=== PATIENT | male | born 1970 | race Caucasian/White ===

== ENCOUNTER 2020-12-01 10:28 | Outpatient (REF) | payer OTHER, SELFPAY ==
[2020-12-01 12:38] LABS: MANUAL DIFF FLAG NO
[2020-12-01 12:42] LABS: Basophils Percent Auto 0.4 % (0-2); Eosinophils Absolute Auto 0.1 X10*3/uL (0.0-0.4); Eosinophils Percent Auto 1.1 % (0-4); Hematocrit 46.3 % (42-52); Hemoglobin 15.4 g/dl (14.0-18.0); Imm Gran Abs Auto 0.01 X10*3/uL (0.00-0.03); Imm Gran Pct Auto 0.2 % (0.0-0.4); Lymphocytes Absolute Auto 1.2 X10*3/uL (1.2-4.9); Lymphocytes Percent Auto 21.9 % (20-40); Mean Corpuscular HGB Conc 33.3 g/dl (31.0-36.0); Mean Corpuscular Hemoglobin 29.3 pg (27.0-33.0); Mean Corpuscular Volume 88.2 fL (80-98); Mean Platelet Volume 10.1 fL (9.4-12.4); Monocytes Absolute Auto 0.3 X10*3/uL (0.1-1.2); Monocytes Percent Auto 6.1 % (2-11); Neutrophils Absolute Auto 3.7 X10*3/uL (2.0-8.3); Neutrophils Percent Auto 70.3 % (45-73); Platelet Count 227 X10*3/uL (160-400); Red Blood Count 5.25 X10*6/uL (4.60-5.80); Red Cell Distribution Width 12.1 % (11.0-16.0); White Blood Count 5.3 X10*3/uL (4.8-10.8)
[2020-12-01 13:05] LABS: Alanine Aminotransferase 27 U/L (0-40); Albumin Level 4.2 g/dL (3.5-5.0); Alkaline Phosphatase 53 U/L (39-117); Anion Gap 13 (12-20); Aspartate Amino Transferase 21 U/L (5-37); Bilirubin Total 0.9 mg/dL (0.0-1.0); Blood Urea Nitrogen 17 mg/dL (9-16); Calcium 9.1 mg/dL (8.4-10.2); Carbon Dioxide 27 mmol/L (22-29); Chloride 104 mmol/L (96-108); Cholesterol 226 mg/dL; Estimated Glomerular Filt Rate > 60; Glucose Fasting 98 mg/dL (60-99); HDL Cholesterol 50 mg/dL; LDL Cholesterol Calculated 149 mg/dl; Potassium 4.1 mmol/L (3.3-5.1); Sodium 140 mmol/L (135-145); Total Protein 7.1 g/dL (6.5-8.0); Triglycerides 139 mg/dL
[2020-12-01 13:25] LABS: Prostate Specific Antigen 0.39 ng/mL (<0.05-4.0)
== END 2020-12-01 10:29 | disposition home or self-care (01) ==
LOC: HO.MANLDS 10:28
PROVIDERS: PCP Internal Medicine; Visit Provider Internal Medicine
DX: Z00.00 Encounter for general adult medical examination without abnormal findings (principal); Z12.5 Encounter for screening for malignant neoplasm of prostate
CPT/HCPCS: 36415; 80053; 80061; 84153; 85025

== ENCOUNTER 2022-01-24 09:15 | Outpatient (REF) | payer OTHER, SELFPAY ==
[2022-01-24 11:35] LABS: Alanine Aminotransferase 20 U/L (0-40); Albumin Level 4.2 g/dL (3.5-5.0); Alkaline Phosphatase 48 U/L (39-117); Anion Gap 14 (12-20); Aspartate Amino Transferase 19 U/L (5-37); Bilirubin Total 0.7 mg/dL (0.0-1.0); Blood Urea Nitrogen 15 mg/dL (9-16); Calcium 9.3 mg/dL (8.4-10.2); Carbon Dioxide 27 mmol/L (22-29); Chloride 102 mmol/L (96-108); Cholesterol 213 mg/dL; Estimated Glomerular Filt Rate > 60; Glucose Random 113 mg/dL (60-115); HDL Cholesterol 59 mg/dL; LDL Cholesterol Calculated 123 mg/dl; Potassium 4.1 mmol/L (3.3-5.1); Sodium 139 mmol/L (135-145); Total Protein 7.1 g/dL (6.5-8.0); Triglycerides 158 mg/dL
[2022-01-24 11:38] LABS: Prostate Specific Antigen 0.29 ng/mL (<0.05-4.0)
== END 2022-01-24 09:16 | disposition home or self-care (01) ==
LOC: HO.MANLDS 09:15
PROVIDERS: Visit Provider Internal Medicine
DX: Z12.5 Encounter for screening for malignant neoplasm of prostate (principal); E78.5 Hyperlipidemia, unspecified
CPT/HCPCS: 36415; 80053; 80061; 84153

== ENCOUNTER 2023-04-04 08:53 | Outpatient (REF) | payer OTHER, SELFPAY ==
[2023-04-04 13:42] LABS: MANUAL DIFF FLAG NO
[2023-04-04 13:46] LABS: Basophils Percent Auto 0.9 % (0-2); Eosinophils Absolute Auto 0.1 X10*3/uL (0.0-0.4); Eosinophils Percent Auto 1.8 % (0-4); Hematocrit 48.4 % (42.0-52.0); Hemoglobin 15.9 g/dl (14.0-18.0); Imm Gran Abs Auto 0.01 X10*3/uL (0.00-0.03); Imm Gran Pct Auto 0.2 % (0.0-0.4); Lymphocytes Absolute Auto 1.3 X10*3/uL (1.2-4.9); Lymphocytes Percent Auto 29.1 % (20-40); Mean Corpuscular HGB Conc 32.9 g/dl (31.0-36.0); Mean Corpuscular Hemoglobin 29.4 pg (27.0-33.0); Mean Corpuscular Volume 89.5 fL (80.0-98.0); Mean Platelet Volume 9.9 fL (9.4-12.4); Monocytes Absolute Auto 0.4 X10*3/uL (0.1-1.2); Monocytes Percent Auto 7.8 % (2-11); Neutrophils Absolute Auto 2.7 x10*3/uL (2.0-8.3); Neutrophils Percent Auto 60.2 % (45-73); Platelet Count 252 X10*3/uL (160-400); Red Blood Count 5.41 X10*6/uL (4.60-5.80); Red Cell Distribution Width 12.3 % (11.0-16.0); White Blood Count 4.5 X10*3/uL (4.8-10.8)
[2023-04-04 14:25] LABS: Alanine Aminotransferase 23 U/L (0-40); Albumin Level 4.4 g/dL (3.5-5.0); Alkaline Phosphatase 47 U/L (39-117); Anion Gap 13 (12-20); Aspartate Amino Transferase 23 U/L (5-37); Bilirubin Total 0.9 mg/dL (0.0-1.0); Blood Urea Nitrogen 10 mg/dL (9-16); Carbon Dioxide 27 mmol/L (22-29); Chloride 106 mmol/L (96-108); Cholesterol 207 mg/dL (<200); Estimated Glomerular Filt Rate > 60; Glucose Random 106 mg/dL (60-115); HDL Cholesterol 54 mg/dL (>40); LDL Cholesterol Calculated 127 mg/dL (<100); Potassium 4.5 mmol/L (3.3-5.1); Sodium 141 mmol/L (135-145); Total Protein 7.7 g/dL (6.5-8.0); Triglycerides 133 mg/dL (<150)
[2023-04-04 14:28] LABS: Thyroid Stimulating Hormone 1.32 uIU/mL (0.32-4.0)
[2023-04-04 14:37] LABS: Vitamin B12 654 pg/mL (200-900)
== END 2023-04-04 08:54 | disposition home or self-care (01) ==
LOC: HO.MANLDS 08:53
PROVIDERS: Visit Provider Internal Medicine
DX: E78.5 Hyperlipidemia, unspecified (principal); F41.9 Anxiety disorder, unspecified
CPT/HCPCS: 36415; 80053; 80061; 82607; 82746; 84443; 85025

== ENCOUNTER 2024-01-16 09:31 | Outpatient (REF) | payer OTHER, SELFPAY ==
[2024-01-16 13:31] LABS: MANUAL DIFF FLAG NO
[2024-01-16 13:43] LABS: Basophils Percent Auto 0.5 % (0-2); Eosinophils Absolute Auto 0.1 X10*3/uL (0.0-0.4); Eosinophils Percent Auto 1.9 % (0-4); Hematocrit 47.8 % (42.0-52.0); Hemoglobin 15.8 g/dl (14.0-18.0); Imm Gran Abs Auto 0.01 X10*3/uL (0.00-0.03); Imm Gran Pct Auto 0.2 % (0.0-0.4); Lymphocytes Absolute Auto 1.5 X10*3/uL (1.2-4.9); Lymphocytes Percent Auto 24.7 % (20-40); Mean Corpuscular HGB Conc 33.1 g/dl (31.0-36.0); Mean Corpuscular Hemoglobin 29.2 pg (27.0-33.0); Mean Corpuscular Volume 88.4 fL (80.0-98.0); Mean Platelet Volume 9.8 fL (9.4-12.4); Monocytes Absolute Auto 0.4 X10*3/uL (0.1-1.2); Monocytes Percent Auto 7.4 % (2-11); Neutrophils Absolute Auto 3.9 x10*3/uL (2.0-8.3); Neutrophils Percent Auto 65.3 % (45-73); Platelet Count 239 X10*3/uL (160-400); Red Blood Count 5.41 X10*6/uL (4.60-5.80); Red Cell Distribution Width 12.7 % (11.0-16.0); White Blood Count 5.9 X10*3/uL (4.8-10.8)
[2024-01-16 14:07] LABS: Alanine Aminotransferase 32 U/L (0-40); Albumin Level 4.5 g/dL (3.5-5.0); Alkaline Phosphatase 50 U/L (39-117); Anion Gap 13 (12-20); Aspartate Amino Transferase 26 U/L (5-37); Bilirubin Total 0.7 mg/dL (0.0-1.0); Blood Urea Nitrogen 13 mg/dL (9-16); Calcium 9.8 mg/dL (8.4-10.2); Carbon Dioxide 27 mmol/L (22-29); Chloride 104 mmol/L (96-108); Cholesterol 217 mg/dL (<200); Estimated Glomerular Filt Rate > 60; Glucose Random 96 mg/dL (60-115); HDL Cholesterol 57 mg/dL (>40); LDL Cholesterol Calculated 134 mg/dL (<100); Potassium 4.4 mmol/L (3.3-5.1); Sodium 140 mmol/L (135-145); Total Protein 7.8 g/dL (6.5-8.0); Triglycerides 132 mg/dL (<150)
[2024-01-16 14:13] LABS: Prostate Specific Antigen 0.46 ng/mL (<0.05-4.0)
[2024-01-16 14:23] LABS: Vitamin D 25-OH Total 80.6 ng/mL (>30)
== END 2024-01-16 09:32 | disposition home or self-care (01) ==
LOC: HO.MANLDS 09:31
PROVIDERS: Visit Provider Internal Medicine
DX: Z00.00 Encounter for general adult medical examination without abnormal findings (principal); Z12.5 Encounter for screening for malignant neoplasm of prostate
CPT/HCPCS: 36415; 80053; 80061; 82306; 84153; 85025

== ENCOUNTER 2024-09-17 10:27 | Outpatient (REF) | payer OTHER, SELFPAY ==
--- OUTSIDE RECORDS SUMMARY | 2024-09-17 11:40 | XMS_ITS | Data Portability ---
Author Organization [facility] Address [address] [place] [address] Assessment Encounter Date Assessment Date Assessment LastModified by Organization Details LastModified Time 12/06/2021 12/06/2021 [id number] [place] [id number] ([employer]) MDM MODERATE MUST MEET 2 OUT OF 3 ELEMENTS: PROBLEMS, DATA OR RISK ELEMENT 1: PROBLEMS ADDRESSED 1 OR MORE CHRONIC ILLNESS WITH EXACERBATION OR 2 OR MORE STABLE CHRONIC ILLNESSES OR 1 UNDIAGNOSED NEW PROBLEM OR 1 ACUTE ILLNESS W/SYMPTOMS OR 1 ACUTE COMPLICATED INJURY ELEMENT 2: DATA MUST MEET 1 OF 3 CATEGORIES CATEGORY 1: REVIEW OF PRIOR EXTERNAL NOTES, REVIEW OF RESULTS, ORDERING OF EACH TEST, ASSESSMENT REQUIRING INDEPENDENT HISTORIAN OR CATEGORY 2: INDEPENDENT INTERPRETATION OF TESTS BY ANOTHER PHYSICIAN OR SPECIALIST OR CATEGORY 3: DISCUSSION OF MGT OR TEST INTERPRETATION W/EXTERNAL PHYSICIAN OR SPECIALIST ELEMENT 3: RISK RISK OF COMPLICATIONS AND/OR MORBIDITY OR MORTALITY OF PATIENT MANAGEMENT PROVIDER MUST THOROUGHLY DOCUMENT EACH ELEMENT THAT IS COVERED Not available 12/06/2021 16:41:00 03/29/2023 03/29/2023 [id number] [place] [id number] ([employer]) : MDM LOW MUST MEET 2 OF 3 ELEMENTS: PROBLEMS, DATA OR RISK ELEMENT 1: PROBLEMS ADDRESSED (LOW): 2 OR MORE SELF-LIMITED OR MINOR PROBLEMS OR 1 STABLE CHRONIC ILLNESS OR 1 ACUTE UNCOMPLICATED ILLNESS OR INJURY ELEMENT 2: DATA TO BE REVISED AND ANALYZED (LOW) MUST MEET 1 OF 2 CATEGORIES: CATEGORY 1. REVIEW OF PRIOR EXTERNAL NOTES/RESULTS, ORDERING OF TEST(S) CATEGORY 2. ASSESSMENT REQUIRING INDEPENDENT HISTORIAN(S) INCLUDE WHO THE HISTORIAN IS AND RELATION TO PT AND WHY PT IS UNABLE TO GIVE COMPLETE HISTORY ELEMENT 3: RISK (LOW) RISK OF COMPLICATIONS AND/OR MORBIDITY OR MORTALITY OF PATIENT MANAGEMENT PROVIDER MUST THOROUGHLY DOCUMENT ALL OF THE ELEMENTS COVERED Not available 03/29/2023 16:05:24 05/03/2023 05/03/2023 [id number] [place] [id number] ([employer]) : MDM LOW MUST MEET 2 OF 3 ELEMENTS: PROBLEMS, DATA OR RISK ELEMENT 1: PROBLEMS ADDRESSED (LOW): 2 OR MORE SELF-LIMITED OR MINOR PROBLEMS OR 1 STABLE CHRONIC ILLNESS OR 1 ACUTE UNCOMPLICATED ILLNESS OR INJURY ELEMENT 2: DATA TO BE REVISED AND ANALYZED (LOW) MUST MEET 1 OF 2 CATEGORIES: CATEGORY 1. REVIEW OF PRIOR EXTERNAL NOTES/RESULTS, ORDERING OF TEST(S) CATEGORY 2. ASSESSMENT REQUIRING INDEPENDENT HISTORIAN(S) INCLUDE WHO THE HISTORIAN IS AND RELATION TO PT AND WHY PT IS UNABLE TO GIVE COMPLETE HISTORY ELEMENT 3: RISK (LOW) RISK OF COMPLICATIONS AND/OR MORBIDITY OR MORTALITY OF PATIENT MANAGEMENT PROVIDER MUST THOROUGHLY DOCUMENT ALL OF THE ELEMENTS COVERED Not available 05/03/2023 17:02:25 Plan of Treatment Reminders Order Date Submit Date Provider Last Modified By Organization Details Last Modified Time Details Appointments ANNUAL EXAM 2024 12:00P M DR ARRINGTON Not available Not available Not available Lab lipid panel, blood 2021 022 [facility], [address] [place] [address], [id number], 12/06/2021 16:50:26 CMP, serum or plasma 2021 022 [facility], [address] [place] [address], [id number], 12/13/2021 12:12:48 PSA, serum or plasma 2021 022 [facility], [address] [place] [address], [id number], 12/06/2021 16:50:26 vitamin B12 + folate, serum or blood 2022 023 [facility], [address] [place] [address], [id number], 03/29/2023 16:15:32 TSH, serum or plasma 2022 023 [facility], [address] [place] [address], [id number], 03/29/2023 16:15:32 lipid panel, blood 2022 023 [facility], [address] [place] [address], [id number], 03/29/2023 16:15:32 CMP, serum or plasma 2022 023 [facility], [address] [place] [address], [id number], 03/29/2023 16:15:32 CBC w/ auto diff 2022 023 [facility], [address] [place] [address], [id number], 03/29/2023 16:15:32 CMP, serum or plasma 2023 024 [facility], [address] [place] [address], [id number], 01/17/2024 11:19:12 PSA, serum or plasma 2023 024 [facility], [address] [place] [address], [id number], 01/17/2024 11:19:13 CBC w/ auto diff 2023 024 [facility], [address] [place] [address], [address], 01/17/2024 11:19:12 lipid panel, blood 2023 024 [facility], [address] [place] [address], [address], 01/17/2024 11:19:12 vitamin D, 25-hydrox y, total, serum [address] [facility], [address] [place] [address], [place], [address], 01/16/2024 13:32:58 Referral None recorded. Procedures None recorded. Surgeries None recorded. Imaging XR, knee, 3 view 2023 [facility], [address] [facility], [place], [address], 01/30/2024 08:06:26 Medication Orders trazodone 50 mg tablet 2021 022 [id number], [address], [place], [id number], 08/19/2024 16:07:11 clonazepa m 0.5 mg tablet [address] [facility][id number], [address], [place], [id number], 03/29/2023 16:08:11 duloxetin e 30 mg capsule,d elayed release [address] [facility] #[id number], [address], [place], [id number], 01/16/2024 09:09:14 buspirone 10 mg tablet [address] [facility] #[id number], [address], [place], [id number], 01/16/2024 09:08:51 trazodone 100 mg tablet [address] [id number], [address], [place], [id number], 01/16/2024 13:32:58 Patient TargetsNo targets recorded. Patient Instructions Encounter Date Encounter Id Patient Instructions Last Modified By Organization Details Last Modified Time 12/06/2021 [id number] insomnia: care instructions Not available 12/06/2021 16:39:50 high cholesterol : care instructions Not available 12/06/2021 16:39:50 03/29/2023 [id number] high cholesterol : care instructions Not available 03/29/2023 16:08:03 Reason for Referral None Reported. Results Created Date Observation Date Name Description Value Unit Range Abnormal Flag Note LastModifiedBy Organization Detail LastModifiedTime Result Notes None recorded. Problems Name Problem SNOMED Code Status Onset Date Resolution Date Notes Provider Name and Address Organization Details Recorded Time Hyperlip idemia 16039589 Active 2020 Fabrice Arrington DO [address] [place] [address], [address], [facility] 1 16:36:45 Insomnia 917790760 Active 2021 Fabrice Arrington DO [address] [place] [address], [address], [facility] 2 16:36:55 Anxiety 20131109 Active 2021 Fabrice Arrington DO [address] [place] [address], [address], [facility] 2 16:42:45 Neuralgi a 64258326 Active 2017 [facility] [place] [facility] 8 10:26:40 Pain of left knee joint 43483784468 4107 Active 2023 Fabrice Arrington DO [address] [place] [address], [address], [facility] 4 09:17:52 Stress and adjustme nt reaction 707094334 Active 2023 Fabrice Arrington DO [address] [place] [address], [address], [facility] 4 09:20:51 Dysuria- frequenc y syndrome 7817785 Active 2024 Fabrice Arrington DO [address] [place] [address], [address], [facility] 5 09:59:48 Dysuria 57960165 Active 2024 Fabrice Arrington, DO [address] [facility], [place], [address], [facility] 5 10:25:02 Problem Notes None recorded. Medical Equipment None Reported. Allergies No known drug allergies Medications Name Sig Start Date Stop Date Status Note LastModified by Organization Details LastModified Time citalopram 40 mg tablet Take 1 tablet every day by oral route for 30 days. 01/09 completed Not Available Not Available Not Available trazodone 50 mg tablet TAKE 1 TABLET BY MOUTH EVERY DAY AT BEDTIME 08/19 completed Not Available Not Available Not Available ibuprofen 800 mg tablet TAKE 1 TABLET BY MOUTH EVERY 8 HOURS FOR 5 DAYS 12/06 completed Not Available Not Available Not Available clonazepam 0.5 mg tablet TAKE 1 TABLET BY MOUTH THREE TIMES DAILY NEEDED 2023 active Not Available Not Available Not Avai lable sertraline 100 mg tablet take 1 tablet by mouth once daily 12/01 completed Not Available Not Available Not Available ciprofloxac in 500 mg tablet Take 1 tablet every 12 hours by oral route for 10 days. 2024 active Not Available Not Available Not Avai lable lorazepam 0.5 mg tablet TAKE 1 TABLET BY MOUTH THREE TIMES DAILY FOR 7 DAYS NEEDED active Not Available Not Available No t Available trazodone 100 mg tablet TAKE 1 TABLET BY MOUTH EVERY DAY AT BEDTIME 2024 active Not Available Not Available Not Avai lable buspirone 10 mg tablet TAKE 1 TABLET BY MOUTH TWICE DAILY 01/15 completed Not Available Not Available Not Available polymyxin B sulfate 10,000 unit-trimet hoprim 1 mg/mL eye drops INSTILL 1 DROP INTO RIGHT EYE FOUR TIMES A DAY FOR 5 DAYS 12/06 completed Not Available Not Available Not Available omeprazole 20 mg capsule,del ayed release TAKE 1 CAPSULE BY MOUTH EVERY DAY 2023 active Not Available Not Available Not Avai lable amoxicillin 250 mg capsule TAKE 1 CAPSULE BY MOUTH EVERY 8 HOURS FOR 7 DAYS 12/06 completed Not Available Not Available Not Available lorazepam 1 mg tablet TAKE 1/2 TABLET BY MOUTH THREE TIMES DAILY NEEDED 05/03 completed Not Available Not Available Not Available ketoconazol e 2 % topical cream APPLY TOPICALLY TO THE AFFECTED AREA TWICE DAILY FOR 14 DAYS DIRECTED 12/06 completed Not Available Not Available Not Available duloxetine 30 mg capsule,del ayed release TAKE 1 CAPSULE BY MOUTH EVERY DAY 01/15 completed Not Available Not Available Not Available Boostrix Tdap 2.5 Lf unit-8 mcg-5 Lf/0.5 mL intramuscul ar syringe 12/01 completed Not Available Not Available Not Available Vitals Date Recorded Body weight Body mass index (BMI) Body height Heart rate Oxygen saturation Oxygen saturation in Arterial blood by Pulse oximetry Systolic blood pressure Diastolic blood pressure Provider Name and Address Organization Details Last Updated DateTime 2 37070.1 4 g 26.3 kg/m2 181.61 cm 83 /min 98 % 98 % 136 mm[Hg] 80 mm[Hg] Fabrice Arrington, DO [address] [place], [address] [place] [address] [facility] 2 16:13:57 Date Recorded Body height Body mass index (BMI) Body weight Heart rate Oxygen saturation Oxygen saturation in Arterial blood by Pulse oximetry Systolic blood pressure Diastolic blood pressure Provider Name and Address Organization Details Last Updated DateTime 2 181.61 cm 24.7 kg/m2 33250.2 7 g 90 /min 96 % 96 % 130 mm[Hg] 70 mm[Hg] Fabrice Arrington, DO [address] [place], [address] [place] [address] [facility] 2 09:06:01 Date Recorded Body height Body mass index (BMI) Body weight Heart rate Oxygen saturation Oxygen saturation in Arterial blood by Pulse oximetry Systolic blood pressure Diastolic blood pressure Provider Name and Address Organization Details Last Updated DateTime 3 180.34 cm 25.9 kg/m2 20878.1 8 g 81 /min 98 % 98 % 155 mm[Hg] 88 mm[Hg] Allie Otero [facility] 3 15:27:00 Date Recorded Body height Body mass index (BMI) Body weight Heart rate Oxygen saturation Oxygen saturation in Arterial blood by Pulse oximetry Systolic blood pressure Diastolic blood pressure Provider Name and Address Organization Details Last Updated DateTime 3 180.34 cm 25.4 kg/m2 96960.5 3 g 110 /min 99 % 99 % 126 mm[Hg] 72 mm[Hg] Fabrice Arrington DO [address] [place], [address], [facility] 3 16:37:17 Date Recorded Body height Body mass index (BMI) Body weight Heart rate Oxygen saturation Oxygen saturation in Arterial blood by Pulse oximetry Systolic blood pressure Diastolic blood pressure Provider Name and Address Organization Details Last Updated DateTime 4 180.34 cm 26.5 kg/m2 02396.9 1 g 90 /min 97 % 97 % 132 mm[Hg] 78 mm[Hg] Sheela James [facility] 4 08:59:00 Social History Question Answer Notes LastModified by Organizat ion Details LastModified Time Tobacco Smoking Status Current Every Day Smoker e-cigg Not Available [facility] 06/09/2020 03:36:24 What Was The Date Of Your Most Recent Tobacco Screening? 01/16/2024 [email or web address] Information not available 01/16/2024 Do You Or Have You Ever Used Any Other Forms Of Tobacco Or Nicotine? No [email or web address] Information not available 03/29/2023 Sex: Unknown Functional Status None recorded. Mental Status None recorded. Family History Nothing Reported. Medical History No medical history recorded. Immunizations Vaccine Type Date Status Note Provider Nam e and Address Organization Details Recorded Time Tdap 04/29/2019 completed Not Available [facility] 05/28/2021 15:39:46 Past Encounters Encounter ID Performer Location Encounter Start Date Encounter Closed Date Diagnosis/Indication Diagnosis SNOMED-CT Code Diagnosis ICD10 Code Diagnosis Note [id number] Fabrice Arrington DO [facility] [address] [facility] [address] 01/09/2018 11:43:45 01/09/2018 12:21:19 Adult health examination 832324072 Z00.00 will add sertraline again and go with a higher dose taken in the evening Active or passive immunization 552811728 Z23 [id number] Fabrice Arrington [facility] [address] [facility] [address] 02/21/2018 11:34:08 02/21/2018 13:49:55 Hyperglycemia 16245849 R73.9 will re chk lab in 6 weeks early chk A1c and glucose [id number] Fabrice Arrington [facility] [address] [facility] [address] 04/25/2018 13:34:01 04/25/2018 14:17:27 Hyperglycemia 09818330 R73.9 will re chk lab in 6 months early november chk A1c and glucose [id number] Fabrice Bordenmaritza [facility] [address] [facility] [address] 12/01/2020 09:44:23 12/01/2020 11:32:36 Active or passive immunization 293647268 Z23 will need shingles vacc in 10 yrs he will also need colonsocop y soon Adult heal th examination 036516805 Z00.00 doing well no major issues Screening for malignant neoplasm of colon 404181218 Z12.11 had one at 40 yrs age will order Anxiety 45114615 F41.9 Tinea cruris 574446052 B 35.6 [id number] Fabrice Arrington [facility] [address] [facility] [address] 12/06/2021 15:36:33 12/07/2021 08:11:41 Hyperlipidemia 24615103 E78.5 will need lab and have him get fbw Insomnia 356858825 G47.0 0 we will try the lower Anxiety 45980156 F41.9 was on citalopram now having similar sympt we will try the trazodone first and [place] [id number] Fabrice Bordenmaritza [facility] [address] [facility] [address] 03/04/2022 09:00:55 03/04/2022 10:15:47 Active or passive immunization 116678221 Z23 will need shingles vacc in 10 yrs he will also need colonsocop y soon Adult heal th examination 998103412 Z00.00 doing well no major issueslong discuss re lab etc we will have him cont to eat well stay active and rechk a cholestero l in 1 year after this we will then consider ordering a ct heart calcium score [id number] Fabrice Arrington, [facility] [address] [facility] [address] 03/29/2023 15:05:01 03/29/2023 16:19:13 Hyperlipidemia 46587605 E78.5 will need lab and have him get fbw Anxiety 24200786 F41.9 we will have him try duloxetine and willsee in 4 weeks also we will refill clonazepam instead of lorazepam [id number] Fabrice Arrington, [facility] [address] [facility] [address] 05/03/2023 16:01:50 05/05/2023 08:07:02 Anxiety 46188709 F41.9 did not tolerate the duloxetine has had some diarrhea and on edge but other days was betterwill try buspirone Hyperlipidemia 20104368 E78.5 will need lab and have him get fbw [id number] Fabrice Arrington, [facility] [address] [facility] [address] 01/16/2024 08:51:16 01/16/2024 11:16:39 Active or passive immunization 915944583 Z23 will need shingles vacc in 10 yrs he will also need colonsocop y soon Adult heal th examination 214119734 Z00.00 doing well no major issueslong discuss re lab etc we will have him cont to eat well stay active and rechk a cholestero l in 1 year after this we will then consider ordering a ct heart calcium score Depression screening 171 806804 Z13.31 SCREENING NEGATIVE Stress and adjustment reaction 629885051 F43.9 stop buspar Insomnia 687774470 G47.0 0 we will try increasing the traz to help with the stresshe will stop the buspar Pain of le ft knee joint 4727600123 25540 M25.562 obvious damage to palpation and pt relates pain will start with xray Health Concerns Section Related Observation LastModified by Organization Detai ls LastModified Time None Recorded Concern Status LastModified by Organization Details LastModified Time None Recorded Advance Directives Directive None Recorded Payers Encounter Date Sequence Insurance Name Policy Number Policy Epperson Covered Member ID Epperson Member ID Guarantor Name 12/06/2021 1 [facility] [id number] Sedrick Devon [id number] Sedrick Devon 03/04/2022 1 [facility] [id number] Sedrick Devon [id number] Sedrick Devon 03/29/2023 1 [facility] [id number] Sedrick Devon [id number] Sedrick Devon 05/03/2023 1 [facility] [id number] Sedrick Devon [id number] Sedrick Devon 01/16/2024 1 [facility] [id number] Sedrick Devon [id number] Sedrick Devon Notes Date Note Type Note Provider Name and Address Organization Details Recorded Time 12/07/19 22 text/htm l Care Management - HyperlipidemiaReported bypatient.Control:usually well controlled; improving; at goal Complications:no coronary artery disease; no heart attack; no cardiovascular disease; no pancreatitis; no stroke here for rechk and is doing ok overallno cp no sobdenies any prob bowels and bladderstates not sleeping well we angy be getting some lab Fabrice Arrington, DO [address] [place], [address], [facility] 12/06/2021 16:45:01 03/04/20 22 text/htm l Annual WellnessReported bypatient.Diet and Nutrition:healthy diet Fracture Risk:no history of fractures; no recent explained fracture; no sudden unexplained fractures; no previous musculoskeletal injuries Physical Activity:exercises on a regular basis; recent increase in physical activity; good physical condition Additional Lifestyle Factors:no tobacco use; no alcohol intake; stopped drinking alcohol Depression Risk:never feels sad, empty, or tearful; no loss of interest in activities; no significant changes in weight; no sleep disturbances or insomnia; no agitation; no loss of energy; no feelings of worthlessness or guilt; no thoughts of suicide; no history of depression; no history of mood disorders Hearing:no loss of hearing Vision:no vision problems Fabrice Arrington DO [address] [place], [address], [facility] 03/04/2022 09:50:53 03/29/20 23 text/htm l here for rechk and relates that he has been still anxiouslong detailed discussion re anxiety and stress and feeling down and treatment opitons Fabrice Arrington DO [address] [place], [address], [facility] 03/29/2023 16:12:39 05/03/20 text/htm l here for rechk a nd states tried to take the diloxetine and states that first week was not too good and had some diarrheastates has had couple days not feeling well and stayed in bedthis week had a panic attack Fabrice Arrington DO [address] [place], [address], [facility] 05/03/2023 17:12:22 01/16/20 24 text/htm l Annual WellnessReported bypatient.Diet and Nutrition:healthy diet Fracture Risk:no history of fractures; no recent explained fracture; no sudden unexplained fractures; no previous musculoskeletal injuries Physical Activity:exercises on a regular basis; recent increase in physical activity; good physical condition Additional Lifestyle Factors:no tobacco use; no alcohol intake; stopped drinking alcohol Depression Risk:never feels sad, empty, or tearful; no loss of interest in activities; no significant changes in weight; no sleep disturbances or insomnia; no agitation; no loss of energy; no feelings of worthlessness or guilt; no thoughts of suicide; no history of depression; no history of mood disorders Hearing:no loss of hearing Vision:no vision problems Fabrice Arrington DO [address] [place], [address], [facility] 01/16/2024 09:21:21
[2024-09-17 13:36] LABS: Appearance Urine Clear; Color Urine Yellow; Glucose Urine UA Negative (Negative); Leukocyte Esterase Urine Negative (Negative); Nitrite Urine Negative (Negative); Specific Gravity - Urine <= 1.005 (1.005-1.025); Urine Blood Negative (Negative); Urine Ketones Negative (Negative); Urine Protein Negative (Neg-Trace)
[2024-09-17 13:46] LABS: Bacteria Urine None Seen (None Seen); Hyaline Casts Urine 0-2 /LPF (0-2); RBC Urine 0-2 /HPF (0-2); Squamous Epithelial Cell Urine 0-2 /HPF (0-2); WBC Urine 0-5 /HPF (0-5)
== END 2024-09-17 10:28 | disposition home or self-care (01) ==
LOC: HO.MANLDS 10:27
PROVIDERS: Visit Provider Internal Medicine
DX: R30.0 Dysuria (principal)
CPT/HCPCS: 81001

== ENCOUNTER 2024-10-02 15:28 | Outpatient (REF) | payer OTHER, SELFPAY ==
[2024-10-02 18:52] LABS: Appearance Urine Clear; Color Urine Dark Yellow; Glucose Urine UA Negative (Negative); Leukocyte Esterase Urine Negative (Negative); Nitrite Urine Negative (Negative); PH 6.5 (5.0-9.0); Specific Gravity - Urine 1.025 (1.005-1.025); Urine Blood Negative (Negative); Urine Ketones Trace mg/dL (Negative); Urine Protein Negative (Neg-Trace)
--- OUTSIDE RECORDS SUMMARY | 2024-10-02 19:26 | XMS_ITS | Continuity of Care Document ---
Author Organization [facility], [facility] Address [address] [place] [address] [place] [address] Assessment Encounter Date Assessment Date Assessment LastModified by Organization Details LastModified Time 10/02/2024 10/02/2024 [id number] [place] [id number] (MERCHANDISE EXECUTIVE) MDM MODERATE MUST MEET 2 OUT OF [...] EACH ELEMENT THAT IS COVERED Not available 10/02/2024 15:34:54 Plan of Treatment Reminders Order Date Submit Date Provider Last Modified By Organization Details Last Modified Time Details Appointments NEW PROBLEM 15 2024 03:15P M DR ARRINGTON Not available Not available Not available ANNUAL EXAM 2024 12:00P M DR ARRINGTON Not available Not available Not available Lab urinalysi s complete, reflex culture 2024 025 [facility], [address] [place] [address], [place], [address], 10/02/2024 15:36:46 urinalysi s, dipstick 2024 025 [facility], [address], [address], [place], [address], 10/02/2024 16:08:15 Referral None recorded. Procedures None recorded. Surgeries None recorded. Imaging None recorded. Medication Orders sulfameth oxazole 800 mg-trimet hoprim 160 mg tablet 2024 [place] [id number], [address] [place], [place], [phone], 10/02/2024 15:35:50 Patient TargetsNo targets recorded. Patient Instructions Encounter Date Encounter Id Patient Instructions Last Modified By Organization Details Last Modified Time 10/02/2024 [id number] painful urinatio n (dysuria): care instructions Not available 10/02/2024 15:35:39 epididymitis and orchitis: care instructions Not available 10/02/2024 15:35:38 Reason for Referral None Reported. Results Created Date Observation Date Name Description Value Unit Range Abnormal Flag Note LastModifiedBy Organization Detail LastModifiedTime 10/02/1910/02/2024 urina lysis , dipst ick Leukocytes Negati ve Not Available [address], [place], [address], 10/02/2024 15:14:27 10/02/19 25 10/02/2024 urina lysis , dipst ick Nitrite negati ve Not Available [address], [place], [address], 10/02/2024 15:14:27 10/02/19 25 10/02/2024 urina lysis , dipst ick Urobilinogen .2 Not Available [facility] [address], [place], [address], 10/02/2024 15:14:27 10/02/19 25 10/02/2024 urina lysis , dipst ick Protein Trace Not Available [address], [place], [address], 10/02/2024 15:14:27 10/02/19 25 10/02/2024 urina lysis , dipst ick pH 6.0 Not Available [facility] [address], [place], [address], 10/02/2024 15:14:27 10/02/19 25 10/02/2024 urina lysis , dipst ick Blood Negati ve Not Available [facility] [address], [place], [address], 10/02/2024 15:14:27 10/02/19 25 10/02/2024 urina lysis , dipst ick Specific [place] 1.020 Not Available [facility] [address], [place], [address], 10/02/2024 15:14:27 10/02/19 25 10/02/2024 urina lysis , dipst ick Ketone Trace Not Available [facility] [address], [place], [address], 10/02/2024 15:14:27 10/02/19 25 10/02/2024 urina lysis , dipst ick Bilirubin Small Not Available [facility] [address], [place], [address], 10/02/2024 15:14:27 10/02/19 25 10/02/2024 urina lysis , dipst ick Glucose Negati ve Not Available [facility] [address], [place], [address], 10/02/2024 15:14:27 10/02/19 25 10/02/2024 urina lysis , dipst ick Appearance Clear Not Available [facility] [address], [place], [address], 10/02/2024 15:14:27 10/02/19 25 10/02/2024 urina lysis , dipst ick Color Yellow Not Available [facility] [address], [place], [address], 10/02/2024 15:14:27 Result Notes None recorded. Problems Name Problem SNOMED Code Status Onset Date Resolution Date Notes Provider Name and Address Organization Details Recorded Time Hyperlip idemia 24265811 Active 2020 Fabrice Arrington DO [address] [place] [address], [address], [facility] 1 16:36:45 Insomnia 653305780 Active 2021 Fabrice Arrington DO [address] [place] [address], [address], [facility] 2 16:36:55 Anxiety 67076210 Active 2021 Fabrice Arrington, DO [address] [place] [address], [address], [facility] 2 16:42:45 Neuralgi a 71476073 Active 2017 [facility] Sammie Yebo[facility] 8 10:26:40 Pain of left knee joint 23059165757 4107 Active 2023 Fabrice Arrington DO [address] [place] [address], [address], [facility] 4 09:17:52 Stress and adjustme nt reaction 457715857 Active 2023 Fabrice Arrington DO [address] [place] [address], [address], [facility] 4 09:20:51 Dysuria- frequenc y syndrome 1123902 Active 2024 Fabrice Arrington DO [address] [place] [address], [address], [facility] 5 09:59:48 Dysuria 11482379 Active 2024 Fabrice Arrington, DO [address] [place], [address], [facility] 5 10:25:02 Epididym itis 96611979 Active 2024 Fabrice Arrington, DO [address] [place], [address], [facility] 5 15:35:09 Problem Notes None recorded. Medical Equipment None [...] TABLET BY MOUTH THREE TIMES DAILY NEEDED active Not Available Not Available No t Available sertraline 100 mg tablet take 1 tablet by mouth once daily 12/01 completed Not Available Not Available Not Available ciprofloxac in 500 mg tablet TAKE 1 TABLET BY MOUTH EVERY 12 HOURS FOR 10 DAYS 10/02 completed Not Available Not Available Not Available sulfamethox azole 800 mg-trimetho prim 160 mg tablet Take 1 tablet every 12 hours by oral route for 10 days. 2024 active Not Available Not Available Not Avai lable lorazepam 0.5 mg tablet TAKE 1 TABLET BY MOUTH THREE TIMES DAILY FOR 7 DAYS NEEDED active Not Available Not Available No t Available trazodone 100 mg tablet TAKE 1 TABLET BY MOUTH EVERY DAY AT BEDTIME active Not Available Not Available No t Available buspirone 10 mg tablet TAKE 1 TABLET BY MOUTH TWICE DAILY 10/02 completed Not Available Not Available Not Available polymyxin B sulfate 10,000 unit-trimet hoprim 1 mg/mL eye drops INSTILL 1 DROP INTO RIGHT EYE FOUR TIMES A DAY FOR 5 DAYS 12/06 completed Not Available Not Available Not Available omeprazole 20 mg capsule,del ayed release TAKE 1 CAPSULE BY MOUTH EVERY DAY active Not Available Not Available No t Available amoxicillin 250 mg capsule TAKE 1 CAPSULE [...] Available Not Available Vitals Date Recorded Body height Body mass index (BMI) Body weight Heart rate Oxygen saturation Oxygen saturation in Arterial blood by Pulse oximetry Systolic blood pressure Diastolic blood pressure Provider Name and Address Organization Details Last Updated DateTime 180.34 cm 25.9 kg/m2 08092.7 4 g 76 /min 98 % 98 % 126 mm[Hg] 78 mm[Hg] [facility] 15:12:06 Social History Question Answer Notes LastModified by Organizat ion Details LastModified Time Tobacco Smoking Status Current Every Day Smoker e-cigg Not Available [facility] 06/09/2020 03:36:24 What Was The Date Of Your Most Recent Tobacco Screening? 10/02/2024 [email or web address] Information not available 10/02/2024 Do You Or Have You Ever Used Any Other Forms Of Tobacco Or Nicotine? No [email or web address] Information not available 03/29/2023 Sex: Unknown Functional Status None recorded. Mental Status None recorded. Family History Nothing Reported. Medical History No medical history recorded. Immunizations Vaccine Type Date Status Note Provider Nam e and Address Organization Details Recorded Time Tdap 04/29/2019 completed Not Available [facility] 05/28/2021 15:39:46 Past Encounters Encounter ID Performer Location Encounter Start Date Encounter Closed Date Diagnosis/Indication Diagnosis SNOMED-CT Code Diagnosis ICD10 Code Diagnosis Note [id number] DO [facility] [address] [address] 10/02/2024 15:00:35 10/02/2024 15:44:15 Dysuria 81657130 R30.0 Epididymitis 60488465 N4 5.1 Stress and adjustment reaction 590692243 F43.9 stop [facility] Concerns Section Related Observation LastModified by Organization Detai ls LastModified Time None Recorded Concern Status LastModified by Organization Details LastModified Time None Recorded Payers Encounter Date Sequence Insurance Name Policy Number Policy Epperson Covered Member ID Epperson Member ID Guarantor Name 10/02/2024 1 [facility] [id number] Sedrick Osorio [id number] Sedrick Osorio Notes Date Note Type Note Provider Name a nd Address Organization Details Recorded Time 10/02/2024 text/html having a burning pain down to left testes and having pins and needles to his penis and also had some pain deeper inside Fabrice Arrington DO [address], [place], [address], [facility] 10/02/2024 15:46:33
--- OUTSIDE RECORDS SUMMARY | 2024-10-02 19:26 | XMS_ITS | Data Portability ---
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) : ISABEL HERNANDEZ MUST MEET 2 OF 3 ELEMENTS: PROBLEMS, [...] COVERED Not available 03/29/2023 16:05:24 05/03/2023 05/03/2023 [id number] [place] [id number] (SERVICE WRITER) : ISABEL LOW MUST MEET 2 OF 3 ELEMENTS: [...] THE ELEMENTS COVERED Not available 05/03/2023 17:02:25 10/02/2024 10/02/2024 [id number] [place] [id number] (SERVICE WRITER) MDM MODERATE MUST MEET 2 OUT OF [...] urinalysi s complete, reflex culture 2024 025 [facility], [address] [place] [address], [id number], 10/02/2024 15:36:46 urinalysi s, dipstick 2024 025 [facility], [address], [address], [place], [address], 10/02/2024 16:08:15 CMP, serum or plasma 2023 024 [facility], [address] [place] [address], [id number], 01/17/2024 11:19:12 PSA, serum or plasma 2023 024 [facility], [address] [place] [address], [id number], 01/17/2024 11:19:13 CBC w/ auto diff 2023 024 [facility], [address] [place] [address], [id number], 01/17/2024 11:19:12 lipid panel, blood 2023 024 [facility], [address] [place] [address], [id number], 01/17/2024 11:19:12 vitamin D, 25-hydrox y, total, serum [email or web address] [place] [address] Laboratory, [address] [place] [address], [id number], 01/16/2024 13:32:58 vitamin B12 + folate, serum or blood 2022 023 [facility], [address] [place] [address], [address], 03/29/2023 16:15:32 TSH, serum or plasma 2022 023 [facility], [address] [place] [address], [id number], 03/29/2023 16:15:32 lipid panel, blood 2022 023 [facility], [address] [place] [address], [address], 03/29/2023 16:15:32 CMP, serum or plasma 2022 023 [facility], [address] [place] [address], [id number], 03/29/2023 16:15:32 CBC w/ auto diff 2022 023 [facility], [address] [place] [address], [id number], 03/29/2023 16:15:32 Referral None recorded. Procedures None recorded. Surgeries None recorded. Imaging XR, knee, 3 view 2023 [facility], [address], [place], [address], 01/30/2024 08:06:26 Medication Orders sulfameth oxazole 800 mg-trimet hoprim 160 mg tablet 2024 025 [id number], [address], [place], [id number], 10/02/2024 15:35:50 trazodone 100 mg tablet [address] [facility], [address], [place], [id number], 01/16/2024 13:32:58 buspirone 10 mg tablet [address] [facility], [address], [place], [id number], 10/02/2024 15:39:15 clonazepa m 0.5 mg tablet 2022 023 [facility]9064, [address], [place], [phone], 03/29/2023 16:08:11 duloxetin e 30 mg capsule,d elayed release 2022 024 [facility]28, [address], [place], [id number], 01/16/2024 09:09:14 Patient TargetsNo targets recorded. Patient Instructions Encounter Date Encounter Id Patient Instructions Last Modified By Organization Details Last Modified Time 03/29/2023 [id number] high cholesterol : care instructions Not available 03/29/2023 16:08:03 10/02/2024 [id number] painful urinatio n (dysuria): care instructions Not available 10/02/2024 15:35:39 epididymitis and orchitis: care instructions Not available 10/02/2024 15:35:38 Reason for Referral None Reported. Results Created Date Observation Date Name Description Value Unit Range Abnormal Flag Note LastModifiedBy Organization Detail LastModifiedTime 10/02/1910/02/2024 urina lysis , dipst ick Leukocytes Negati ve Not Available [facility] [address] [place] [address] [address], [place], [address], 10/02/2024 15:14:27 10/02/19 25 10/02/2024 urina lysis , dipst ick Nitrite negati ve Not Available [facility] [address] [place] [address] D, [place], [address], 10/02/2024 15:14:27 10/02/19 25 10/02/2024 urina lysis , dipst ick Urobilinogen .2 Not Available [facility] [address] [facility], [place], [address], 10/02/2024 15:14:27 10/02/19 25 10/02/2024 urina lysis , dipst ick Protein Trace Not Available [facility] [address] [place] [address] [address], [place], [address], 10/02/2024 15:14:27 10/02/19 25 10/02/2024 urina lysis , dipst ick pH 6.0 Not Available [facility] [address] [place] [address] [address], [place], [address], 10/02/2024 15:14:27 10/02/19 25 10/02/2024 urina lysis , dipst ick Blood Negati ve Not Available [facility] [address] [facility] [address], [place], [address], 10/02/2024 15:14:27 10/02/19 25 10/02/2024 urina lysis , dipst ick Specific Hale 1.020 Not Available [facility] Internal [facility] [address], [place], [address], 10/02/2024 15:14:27 10/02/19 25 10/02/2024 urina lysis , dipst ick Ketone Trace Not Available [facility] Internal [facility] [address], [place], [address], 10/02/2024 15:14:27 10/02/19 25 10/02/2024 urina lysis , dipst ick Bilirubin Small Not Available [facility] [address] [facility] [address] [facility], [place], [address], 10/02/2024 15:14:27 10/02/19 25 10/02/2024 urina lysis , dipst ick Glucose Negati ve Not Available [facility] [address], [place], [address], 10/02/2024 15:14:27 10/02/19 25 10/02/2024 urina lysis , dipst ick Appearance Clear Not Available [facility] [address] [facility] [address], [place], [address], 10/02/2024 15:14:27 10/02/19 25 10/02/2024 urina lysis , dipst ick Color Yellow Not Available [facility] [address], [place], [address], 10/02/2024 15:14:27 Result Notes None recorded. Problems Name Problem SNOMED Code Status Onset Date Resolution Date Notes Provider Name and Address Organization Details Recorded Time Hyperlip idemia 10246827 Active 2020 Fabrice Arrington, [address] [facility], [place], [address], [facility] Internal [facility] 1 16:36:45 Insomnia 065731628 Active 2021 Fabrice Arrington DO [address] [place] [address], [address], [facility] 2 16:36:55 Anxiety 07685419 Active 2021 Fabrice Arrington DO [address] [place] [address], [address], [facility] 2 16:42:45 Neuralgi a 53933987 Active 2017 [facility] Sammie Yeboah [facility] 8 10:26:40 Pain of left knee joint 61043077930 4107 Active 2023 Fabrice ArringtonDO [address] [place] [address], [address], [facility] 4 09:17:52 Stress and adjustme nt reaction 806981071 Active 2023 Fabrice Arrington, DO [address] [place] [address], [address], [facility] 4 09:20:51 Dysuria- frequenc y syndrome 8592993 Active 2024 Fabrice ArringtonDO [address] [place] [address], [address], [facility] Internal [facility] 5 09:59:48 Dysuria 74684156 Active 2024 Fabrice ArringtonDO [address] [place] [address], [address], [facility] 5 10:25:02 Epididym itis 77760260 Active 2024 Fabrice ArringtonDO [address] [place] [address], [address], [facility] 5 15:35:09 Problem Notes None recorded. [...] Updated DateTime 2 181.61 cm 24.7 kg/m2 38790.2 7 g 90 /min 96 % 96 % 130 mm[Hg] 70 mm[Hg] Fabrice Arrington DO [address] [place], [address], [facility] 2 09:06:01 Date Recorded Body height Body mass index (BMI) Body weight Heart rate Oxygen saturation Oxygen saturation in Arterial blood by Pulse oximetry Systolic blood pressure Diastolic blood pressure Provider Name and Address Organization Details Last Updated DateTime 3 180.34 cm 25.9 kg/m2 32973.1 8 g 81 /min 98 % 98 % 155 mm[Hg] 88 mm[Hg] Allie Otero [facility] 3 15:27:00 Date Recorded Body height Body mass index (BMI) Body weight Heart rate Oxygen saturation Oxygen saturation in Arterial blood by Pulse oximetry Systolic blood pressure Diastolic blood pressure Provider Name and Address Organization Details Last Updated DateTime 3 180.34 cm 25.4 kg/m2 19313.5 3 g 110 /min 99 % 99 % 126 mm[Hg] 72 mm[Hg] Fabrice Arrington DO [address] [place], [address], [facility] 3 16:37:17 Date Recorded Body height Body mass index (BMI) Body weight Heart rate Oxygen saturation Oxygen saturation in Arterial blood by Pulse oximetry Systolic blood pressure Diastolic blood pressure Provider Name and Address Organization Details Last Updated DateTime 4 180.34 cm 26.5 kg/m2 48061.9 1 g 90 /min 97 % 97 % 132 mm[Hg] 78 mm[Hg] Sheela Ramirez [facility] 4 08:59:00 Date Recorded Body height Body mass index (BMI) Body weight Heart rate Oxygen saturation Oxygen saturation in Arterial blood by Pulse oximetry Systolic blood pressure Diastolic blood pressure Provider Name and Address Organization Details Last Updated DateTime 5 180.34 cm 25.9 kg/m2 43741.7 4 g 76 /min 98 % 98 % 126 mm[Hg] 78 mm[Hg] Stone Paris [facility] 5 15:12:06 Social History Question Answer Notes LastModified by Organizat ion Details LastModified Time Tobacco Smoking Status Current Every Day Smoker e-cigg Not Available [facility] 06/09/2020 03:36:24 What Was The Date Of Your Most Recent Tobacco Screening? 10/02/2024 [email or web address] Information not available 10/02/2024 Do You Or Have You Ever Used Any Other Forms Of Tobacco Or Nicotine? No [email or web address] Information not available 03/29/2023 Sex: Unknown Functional Status None recorded. Mental Status None recorded. Family History Nothing Reported. Medical History No medical history recorded. Immunizations Vaccine Type Date Status Note Provider Nam e and Address Organization Details Recorded Time Tdap 04/29/2019 completed Not Available [facility] 05/28/2021 15:39:46 Past Encounters Encounter ID Performer Location Encounter Start Date Encounter Closed Date Diagnosis/Indication Diagnosis SNOMED-CT Code Diagnosis ICD10 Code Diagnosis Note [id number] Fabrice Arrington DO [facility] [address] [facility] [facility], [place] [address] 01/09/2018 11:43:45 01/09/2018 12:21:19 Adult health examination 622759923 Z00.00 will add sertraline again and go with a higher dose taken in the evening Active or passive immunization 115964042 Z23 [id number] Fabrice Arrington DO [facility] [address] [facility], [place] [address] 02/21/2018 11:34:08 02/21/2018 13:49:55 Hyperglycemia 81033927 R73.9 will re chk lab in 6 weeks early octob chk A1c and glucose [id number] Fabrice Arrington DO [facility] [address] [facility] [facility] [address] 04/25/2018 13:34:01 04/25/2018 14:17:27 Hyperglycemia 90661539 R73.9 will re chk lab in 6 months early november chk A1c and glucose [id number] Fabrice Arrington [facility] [address] [facility] [address] [address] 12/01/2020 09:44:23 12/01/2020 11:32:36 Active or passive immunization 957671916 Z23 will need shingles vacc in 10 yrs he will also need colonsocop y soon Adult heal th examination 874338257 Z00.00 doing well no major issues Screening for malignant neoplasm of colon 177479587 Z12.11 had one at 40 yrs age will order Anxiety 52745299 F41.9 Tinea cruris 009179322 B 35.6 [id number] Fabrice Arrington [facility] [address] [facility],[place] [address] 12/06/2021 15:36:33 12/07/2021 08:11:41 Hyperlipidemia 20196785 E78.5 will need lab and have him get fbw Insomnia 829208493 G47.0 0 we will try the lower Anxiety 73177064 F41.9 was on citalopram now having similar sympt we will try the trazodone first and [place] [id number] Fabrice Arrington [facility] [address] [facility] [address] 03/04/2022 09:00:55 03/04/2022 10:15:47 Active or passive immunization 401755098 Z23 will need shingles vacc in 10 yrs he will also need colonsocop y soon Adult heal th examination 329272800 Z00.00 doing well no major issueslong discuss re lab etc we will have him cont to eat well stay active and rechk a cholestero l in 1 year after this we will then consider ordering a ct heart calcium score [id number] Fabrice Arrington [facility] [address] [facility] [address] [address] 03/29/2023 15:05:01 03/29/2023 16:19:13 Hyperlipidemia 31941356 E78.5 will need lab and have him get fbw Anxiety 79966772 F41.9 we will have him try duloxetine and willsee in 4 weeks also we will refill clonazepam instead of lorazepam [id number] Fabrice Arrington DO [facility] [address] [facility] [address],[place] [address] 05/03/2023 16:01:50 05/05/2023 08:07:02 Anxiety 37717599 F41.9 did not tolerate the duloxetine has had some diarrhea and on edge but other days was betterwill try buspirone Hyperlipidemia 54316789 E78.5 will need lab and have him get fbw [id number] Fabrice Arrington DO [facility] [address] [facility] [address] [address] 01/16/2024 08:51:16 01/16/2024 11:16:39 Active or passive immunization 594785576 Z23 will need shingles vacc in 10 yrs he will also need colonsocop y soon Adult heal th examination 042939497 Z00.00 doing well no major issueslong discuss re lab etc we will have him cont to eat well stay active and rechk a cholestero l in 1 year after this we will then consider ordering a ct heart calcium score Depression screening 171 457440 Z13.31 SCREENING NEGATIVE Stress and adjustment reaction 326100875 F43.9 stop buspar Insomnia 171549717 G47.0 0 we will try increasing the traz to help with the stresshe will stop the buspar Pain of le ft knee joint 3738633578 52641 M25.562 obvious damage to palpation and pt relates pain will start with xray [id number] Fabrice Arrington DO [facility] [address] [facility] [address],[place] [address] [facility] [place] [address] 10/02/2024 15:00:35 10/02/2024 15:44:15 Dysuria 85137631 R30.0 Epididymitis 69024917 N4 5.1 Stress and adjustment reaction 647112160 F43.9 stop buspar Health Concerns Section Related Observation LastModified by Organization Detai ls LastModified Time None Recorded Concern Status LastModified by Organization Details LastModified Time None Recorded Advance Directives Directive None Recorded Payers Encounter Date Sequence Insurance Name Policy Number Policy Epperson Covered Member ID Epperson Member ID Guarantor Name 03/04/2022 1 [facility] [id number] Sedrick Devon [id number] Sedrick Devon 03/29/2023 1 [facility] [id number] Sedrick Devon [id number] Sedrick Devon 05/03/2023 1 [facility] [id number] Sedrick Devon [id number] Sedrick Devon 01/16/2024 1 [facility] [id number] Sedrick Devon [id number] Sedrick Devon 10/02/2024 1 [facility] [id number] Sedrick Devon [id number] Sedrick Devon Notes Date Note Type Note Provider Name a nd Address Organization Details Recorded Time 2 text/html Annual WellnessReported bypatient.Diet and Nutrition:healthy diet Fracture [...] hearing Vision:no vision problems Fabrice Arrington DO [address] [place] [address], [address], [facility] 03/04/2022 09:50:53 3 text/html here for narayan and relates that he has been still anxiouslong detailed discussion re anxiety and stress and feeling down and treatment opitons Fabrice Arrington DO [address] [place], [address], [facility] 03/29/2023 16:12:39 3 text/html here for narayan a nd states tried to take the diloxetine and states that first week was not too good and had some diarrheastates has had couple days not feeling well and stayed in bedthis week had a panic attack Fabrice YatesTed Arrington DO [address] [place] [address], [address], [facility] 05/03/2023 17:12:22 4 text/html Annual WellnessReported bypatient.Diet and Nutrition:healthy diet Fracture [...] loss of hearing Vision:no vision problems Fabrice Carmen DO [facility] [address] [place] [address], [address], [facility] 01/16/2024 09:21:21 5 text/html having a burning pain down to left testes and having pins and needles to his penis and also had some pain deeper inside Fabrice Arrington DO [address] [place] [address], [address], [facility] 10/02/2024 15:46:33
== END 2024-10-02 15:29 | disposition home or self-care (01) ==
LOC: HO.MANLDS 15:28
PROVIDERS: Visit Provider Internal Medicine
DX: R30.0 Dysuria (principal)
CPT/HCPCS: 81003

== ENCOUNTER 2024-10-16 18:18 | Outpatient (REF) | payer OTHER, SELFPAY ==
--- OUTSIDE RECORDS SUMMARY | 2024-10-16 18:50 | XMS_ITS | Data Portability ---
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) MDM MODERATE MUST MEET 2 OUT OF [...] urinalysi s complete, reflex culture 2024 025 [facility], [address] [place] [address], [place], [address], 10/03/2024 12:21:01 urinalysi s, dipstick 2024 025 [facility], [address] [facility], [address], [place], [address], 10/02/2024 16:08:15 CMP, serum or plasma 2023 024 [facility], [address] [place] [address], [place], [address], 01/17/2024 11:19:12 PSA, serum or plasma 2023 024 [facility], [address] [place] [address], [id number], 01/17/2024 11:19:13 CBC w/ auto diff 2023 024 [facility], [address] [place] [address], [id number], 01/17/2024 11:19:12 lipid panel, blood 2023 024 [facility], [address] [place] [address], [id number], 01/17/2024 11:19:12 vitamin D, 25-hydrox y, total, serum 2023 024 [facility], [address] [place] [address], [id number], 01/16/2024 13:32:58 vitamin B12 + folate, serum or blood 2022 023 [facility], [address] [place] [address], [address], 03/29/2023 16:15:32 TSH, serum or plasma 2022 023 [facility], [address] [place] [address], [id number], 03/29/2023 16:15:32 lipid panel, blood 2022 023 [facility], [address] [place] [address], [id number], 03/29/2023 16:15:32 CMP, serum or plasma 2022 023 [facility], [address] [place] [address], [id number], 03/29/2023 16:15:32 CBC w/ auto diff 2022 023 [facility], [address] [place] [address], [id number], 03/29/2023 16:15:32 Referral None recorded. Procedures None recorded. Surgeries None recorded. Imaging XR, knee, 3 view 2023 024 [facility] Central Scheduling, [address] [facility], [place], [address], 01/30/2024 08:06:26 Medication Orders sulfameth oxazole 800 mg-trimet hoprim 160 mg tablet 2024 025 [id number], [address] [place], [place], [id number], 10/02/2024 15:35:50 trazodone 100 mg tablet [address] [facility][id number], [address] [place], [place], [id number], 01/16/2024 13:32:58 buspirone 10 mg tablet [address] [facility] #86700, [address] [place], [place], [id number], 10/02/2024 15:39:15 clonazepa m 0.5 mg tablet 2022 023 [facility] #56198, [address] [place], [place], [id number], 03/29/2023 16:08:11 duloxetin e 30 mg capsule,d elayed release 2022 024 [facility] #[id number], [address] [place], [place], [id number], 01/16/2024 09:09:14 Patient TargetsNo targets recorded. Patient Instructions Encounter Date Encounter Id Patient Instructions Last Modified By Organization Details Last Modified Time 03/29/2023 [id number] high cholesterol : care instructions Not available 03/29/2023 16:08:03 10/02/2024 [id number] painful urinatio n (dysuria): care instructions Not available 10/02/2024 15:35:39 epididymitis and orchitis: care instructions Not available 10/02/2024 15:35:38 Reason for Referral None Reported. Results Created Date Observation Date Name Description Value Unit Range Abnormal Flag Note LastModifiedBy Organization Detail LastModifiedTime 10/02/19 25 10/02/2024 urina lysis , dipst ick Leukocytes Negati ve Not Available [facility] [address], [place], [address], 10/02/2024 15:14:27 10/02/19 25 10/02/2024 urina lysis , dipst ick Nitrite negati ve Not Available [address], [place], [address], 10/02/2024 15:14:27 10/02/19 25 10/02/2024 urina lysis , dipst ick Urobilinogen .2 Not Available [address], [place], [address], 10/02/2024 15:14:27 10/02/19 25 10/02/2024 urina lysis , dipst ick Protein Trace Not Available [address], [place], [address], 10/02/2024 15:14:27 10/02/19 25 10/02/2024 urina lysis , dipst ick pH 6.0 Not Available [address], [place], [address], 10/02/2024 15:14:27 10/02/19 25 10/02/2024 urina lysis , dipst ick Blood Negati ve Not Available [address], [place], [address], 10/02/2024 15:14:27 10/02/19 25 10/02/2024 urina lysis , dipst ick Specific [place] 1.020 Not Available [facility] [address] [facility] [address], [place], [address], 10/02/2024 15:14:27 10/02/19 25 10/02/2024 urina lysis , dipst ick Ketone Trace Not Available [facility] [address] [facility] [address], [place], [address], 10/02/2024 15:14:27 10/02/19 25 10/02/2024 urina lysis , dipst ick Bilirubin Small Not Available [facility] [address] [facility] [address], [place], [address], 10/02/2024 15:14:27 10/02/19 25 10/02/2024 urina lysis , dipst ick Glucose Negati ve Not Available [facility] [address] [facility] [address], [place], [address], 10/02/2024 15:14:27 10/02/19 25 10/02/2024 urina lysis , dipst ick Appearance Clear Not Available [address], [place], [address], 10/02/2024 15:14:27 10/02/19 25 10/02/2024 urina lysis , dipst ick Color Yellow Not Available [facility] [address] [facility] [address], [place], [address], 10/02/2024 15:14:27 Result Notes None recorded. Problems Name Problem SNOMED Code Status Onset Date Resolution Date Notes Provider Name and Address Organization Details Recorded Time Hyperlip idemia 89943713 Active 2020 Fabrice Arrington DO [address] [facility], [place], [address], [facility] - [facility] 16:36:45 Insomnia 798917734 Active 2021 Fabrice Arrington DO [address] [place] [address], [address], [facility] 2 16:36:55 Anxiety 74795430 Active 2021 Fabrice Arrington DO [address] [place] [address], [address], [facility] 2 16:42:45 Neuralgi a 43583920 Active 2017 [facility] Sammie Yeboah [facility] 8 10:26:40 Pain of left knee joint 99520616738 4107 Active 2023 Fabrice Arrington [address] [place] [address], [address], [facility] 4 09:17:52 Stress and adjustme nt reaction 129504300 Active 2023 Fabrice Arrington DO [address] [place] [address], [address], [facility] 4 09:20:51 Dysuria- frequenc y syndrome 4210823 Active 2024 Fabrice Morales MichimaritzaDO [address] [place] [address], [address], [facility] 5 09:59:48 Dysuria 92113571 Active 2024 Fabrice YatesTed BordenmaritzaDO [address] [place] [address], [address], [facility] 5 10:25:02 Epididym itis 41181165 Active 2024 Fabrice Morales MichimaritzaDO [address] [place] [address], [address], [facility] 5 15:35:09 Problem Notes None recorded. Medical [...] azole 800 mg-trimetho prim 160 mg tablet TAKE 1 TABLET BY MOUTH EVERY 12 HOURS FOR 10 DAYS active Not Available Not Available No t Available lorazepam 0.5 mg tablet TAKE 1 TABLET [...] Updated DateTime 2 181.61 cm 24.7 kg/m2 34302.2 7 g 90 /min 96 % 96 % 130 mm[Hg] 70 mm[Hg] Fabrice Arrington, DO [address] [place], [address], [facility] Internal [facility] 2 09:06:01 Date Recorded Body height Body mass index (BMI) Body weight Heart rate Oxygen saturation Oxygen saturation in Arterial blood by Pulse oximetry Systolic blood pressure Diastolic blood pressure Provider Name and Address Organization Details Last Updated DateTime 3 180.34 cm 25.9 kg/m2 26390.1 8 g 81 /min 98 % 98 % 155 mm[Hg] 88 mm[Hg] Allie Otero [facility] 3 15:27:00 Date Recorded Body height Body mass index (BMI) Body weight Heart rate Oxygen saturation Oxygen saturation in Arterial blood by Pulse oximetry Systolic blood pressure Diastolic blood pressure Provider Name and Address Organization Details Last Updated DateTime 3 180.34 cm 25.4 kg/m2 64285.5 3 g 110 /min 99 % 99 % 126 mm[Hg] 72 mm[Hg] Fabrice TrudyTed Arrington, DO [address] [place], [address] 3 16:37:17 Date Recorded Body height Body mass index (BMI) Body weight Heart rate Oxygen saturation Oxygen saturation in Arterial blood by Pulse oximetry Systolic blood pressure Diastolic blood pressure Provider Name and Address Organization Details Last Updated DateTime 4 180.34 cm 26.5 kg/m2 49050.9 1 g 90 /min 97 % 97 % 132 mm[Hg] 78 mm[Hg] Sheela Ramirez [facility] Internal [facility] 4 08:59:00 Date Recorded Body height Body mass index (BMI) Body weight Heart rate Oxygen saturation Oxygen saturation in Arterial blood by Pulse oximetry Systolic blood pressure Diastolic blood pressure Provider Name and Address Organization Details Last Updated DateTime 5 180.34 cm 25.9 kg/m2 15658.7 4 g 76 /min 98 % 98 % 126 mm[Hg] 78 mm[Hg] Stone Paris [facility] 5 15:12:06 Social History Question Answer Notes LastModified by Organizat ion Details LastModified Time Tobacco Smoking Status Current Every Day Smoker e-cigg Not Available [facility] 06/09/2020 03:36:24 What Was The Date Of Your Most Recent Tobacco Screening? 10/02/2024 [email or web address] Information not available 10/02/2024 Do You Or Have You Ever Used Any Other Forms Of Tobacco Or Nicotine? No [email or web address] Information not available 03/29/2023 Sex: Unknown Functional Status None recorded. Mental Status None recorded. Family History Nothing Reported. Medical History No medical history recorded. Immunizations Vaccine Type Date Status Note Provider Nam e and Address Organization Details Recorded Time Tdap 04/29/2019 completed Not Available [facility] 05/28/2021 15:39:46 Past Encounters Encounter ID Performer Location Encounter Start Date Encounter Closed Date Diagnosis/Indication Diagnosis SNOMED-CT Code Diagnosis ICD10 Code Diagnosis Note [id number] Fabrice Arrington [facility] [address] [place] [address] 01/09/2018 11:43:45 01/09/2018 12:21:19 Adult health examination 475280970 Z00.00 will add sertraline again and go with a higher dose taken in the evening Active or passive immunization 531963374 Z23 [id number] Fabrice Arrington DO [facility] [address] [place] [address] 02/21/2018 11:34:08 02/21/2018 13:49:55 Hyperglycemia 04338790 R73.9 will re chk lab in 6 weeks early chk A1c and glucose [id number] Fabrice Arrington DO [facility] [address] [facility], [place] [address] 04/25/2018 13:34:01 04/25/2018 14:17:27 Hyperglycemia 43586236 R73.9 will re chk lab in 6 months early november chk A1c and glucose [id number] Fabrice rArington [facility] [address] [facility] [address] [address] 12/01/2020 09:44:23 12/01/2020 11:32:36 Active or passive immunization 753242991 Z23 will need shingles vacc in 10 yrs he will also need colonsocop y soon Adult heal th examination 829337501 Z00.00 doing well no major issues Screening for malignant neoplasm of colon 294292043 Z12.11 had one at 40 yrs age will order Anxiety 01618706 F41.9 Tinea cruris 078354024 B 35.6 [id number] Fabrice Arrington [facility] [address] [facility] [address], [place] [address] 12/06/2021 15:36:33 12/07/2021 08:11:41 Hyperlipidemia 17817283 E78.5 will need lab and have him get fbw Insomnia 292765703 G47.0 0 we will try the lower Anxiety 15861676 F41.9 was on citalopram now having similar sympt we will try the trazodone first and [place] [id number] Fabrice Arrington [facility] [address] [facility] [address] [address] 03/04/2022 09:00:55 03/04/2022 10:15:47 Active or passive immunization 394223811 Z23 will need shingles vacc in 10 yrs he will also need colonsocop y soon Adult heal th examination 200660896 Z00.00 doing well no major issueslong discuss re lab etc we will have him cont to eat well stay active and rechk a cholestero l in 1 year after this we will then consider ordering a ct heart calcium score [id number] Fabrice Arrington [facility] [address] [facility] [address] [address] [place] [address] 03/29/2023 15:05:01 03/29/2023 16:19:13 Hyperlipidemia 01505286 E78.5 will need lab and have him get fbw Anxiety 43950428 F41.9 we will have him try duloxetine and willsee in 4 weeks also we will refill clonazepam instead of lorazepam [id number] Fabrice Arrington [facility] [address] [facility] [address] [address] 05/03/2023 16:01:50 05/05/2023 08:07:02 Anxiety 87229399 F41.9 did not tolerate the duloxetine has had some diarrhea and on edge but other days was betterwill try buspirone Hyperlipidemia 90170937 E78.5 will need lab and have him get fbw [id number] Fabrice Arrington [facility] [address] [facility] [address] [address] 01/16/2024 08:51:16 01/16/2024 11:16:39 Active or passive immunization 941077748 Z23 will need shingles vacc in 10 yrs he will also need colonsocop y soon Adult heal th examination 340545518 Z00.00 doing well no major issueslong discuss re lab etc we will have him cont to eat well stay active and rechk a cholestero l in 1 year after this we will then consider ordering a ct heart calcium score Depression screening 171 115619 Z13.31 SCREENING NEGATIVE Stress and adjustment reaction 438675614 F43.9 stop buspar Insomnia 059777670 G47.0 0 we will try increasing the traz to help with the stresshe will stop the buspar Pain of le ft knee joint 3837924347 15664 M25.562 obvious damage to palpation and pt relates pain will start with xray [id number] Fabrice Arrington [facility] [address] [facility] [address] [place] [address] [place] [address] 10/02/2024 15:00:35 10/02/2024 15:44:15 Dysuria 97794861 R30.0 Epididymitis 77727967 N4 5.1 Stress and adjustment reaction 584868052 F43.9 stop buspar Health Concerns Section Related Observation LastModified by Organization Detai ls LastModified Time None Recorded Concern Status LastModified by Organization Details LastModified Time None Recorded Advance Directives Directive None Recorded Payers Encounter Date Sequence Insurance Name Policy Number Policy Epperson Covered Member ID Epperson Member ID Guarantor Name 03/04/2022 1 [facility] [id number] Sedrick Devon [id number] Sedrick Cochrantaine 03/29/2023 1 [facility] [id number] Sedrick Devon [id number] Sedrick Devon 05/03/2023 1 [facility] [id number] Sedrick Devon [id number] Sedrick Devon 01/16/2024 1 [facility] [id number] Sedrick Devon [id number] Sedrick Devon 10/02/2024 1 [facility] [id number] Sedrick Devon [id number] Sedrick Cochrantaine Notes Date Note Type Note Provider Name [...] loss of hearing Vision:no vision problems Fabrice Arrington, [address] [place] [address], [address], [facility] 03/04/2022 09:50:53 3 text/html here for rechk and relates that he has been still anxiouslong detailed discussion re anxiety and stress and feeling down and treatment opitons Fabrice Arrington DO [address] [place], [address], [facility] 03/29/2023 16:12:39 3 text/html here for rechk a nd states tried to take the diloxetine and states that first week was not too good and had some diarrheastates has had couple days not feeling well and stayed in bedthis week had a panic attack Fabrice Arrington, DO [address] [place] [address], [address], [facility] 05/03/2023 17:12:22 4 text/html Annual [...] loss of hearing Vision:no vision problems Fabrice Morales DO [facility] [address] [place] [address], [address], [facility] 01/16/2024 09:21:21 5 text/html having a burning pain down to left testes and having pins and needles to his penis and also had some pain deeper inside Fabrice Carmen Arrington DO [address] [place] [address], [address], [facility] 10/02/2024 15:46:33
--- OUTSIDE RECORDS SUMMARY | 2024-10-16 18:50 | XMS_ITS | Continuity of Care Document ---
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 Procedures None recorded. Surgeries None recorded. Imaging None recorded. Medication Orders sulfameth oxazole 800 mg-trimet hoprim 160 mg tablet 2024 025 [id number], [address], [place], [phone], 10/02/2024 15:35:50 Patient TargetsNo targets recorded. Patient Instructions Encounter Date Encounter Id Patient Instructions Last Modified By Organization Details Last Modified Time 10/02/2024 [id number] painful urinatio n (dysuria): care instructions Not available 10/02/2024 15:35:39 epididymitis and orchitis: care instructions Not available 10/02/2024 15:35:38 Reason for Referral None Reported. Results Created Date Observation Date Name Description Value Unit Range Abnormal Flag Note LastModifiedBy Organization Detail LastModifiedTime 10/02/1910/02/2024 urina lysis , dipst ick Leukocytes Negati ve Not Available [facility] [address] [place] [address] [address], [place], [address], 10/02/2024 15:14:27 10/02/19 25 10/02/2024 urina lysis , dipst ick Nitrite negati ve Not Available [facility] [address] [place] [address] D, [place], [address], 10/02/2024 15:14:27 10/02/1910/02/2024 urina lysis , dipst ick Urobilinogen .2 Not Available [facility] [address], [place], [address], 10/02/2024 15:14:27 10/02/19 25 10/02/2024 urina lysis , dipst ick Protein Trace Not Available [facility] [address] [place] [address] [address], [place], [address], 10/02/2024 15:14:27 10/02/19 25 10/02/2024 urina lysis , dipst ick pH 6.0 Not Available [facility] [address], [place], [address], 10/02/2024 15:14:27 10/02/19 25 10/02/2024 urina lysis , dipst ick Blood Negati ve Not Available [facility] [address], [place], [address], 10/02/2024 15:14:27 10/02/19 25 10/02/2024 urina lysis , dipst ick Specific Jennings 1.020 Not Available [facility] [address], [place], [address], 10/02/2024 15:14:27 10/02/19 25 10/02/2024 urina lysis , dipst ick Ketone Trace Not Available [facility] [address], [place], [address], 10/02/2024 15:14:27 10/02/19 25 10/02/2024 urina lysis , dipst ick Bilirubin Small Not Available [facility] [address], [place], [address], 10/02/2024 15:14:27 10/02/19 25 10/02/2024 urina lysis , dipst ick Glucose Negati ve Not Available [facility] [address], [place], [address], 10/02/2024 15:14:27 10/02/19 25 10/02/2024 urina lysis , dipst ick Appearance Clear Not Available [facility] [address], [place], [address], 10/02/2024 15:14:27 10/02/19 25 10/02/2024 urina lysis , dipst ick Color Yellow Not Available [facility] [address], [place], [address], 10/02/2024 15:14:27 Result Notes None recorded. Problems Name Problem SNOMED Code Status Onset Date Resolution Date Notes Provider Name and Address Organization Details Recorded Time Hyperlip idemia 75335501 Active 2020 Fabrice Arrington DO [address] [place] [address], [address], [facility] 1 16:36:45 Insomnia 546852605 Active 2021 Fabrice Arrington DO [address] [place] [address], [address], [facility] 2 16:36:55 Anxiety 54187905 Active 2021 Fabrice Arrington DO [address] [place] [address], [address], [facility] 2 16:42:45 Neuralgi a 26182624 Active 2017 [facility] Sammie Yebo[facility] 8 10:26:40 Pain of left knee joint 33966524947 4107 Active 2023 Fabrice Arrington DO [address] [place] [address], [address], [facility] 4 09:17:52 Stress and adjustme nt reaction 834670270 Active 2023 Fabrice Arrington DO [address] [place] [address], [address], [facility] 4 09:20:51 Dysuria- frequenc y syndrome 5423771 Active 2024 Fabrice Arrington DO [address] [place] [address], [address], [facility] 5 09:59:48 Dysuria 70867056 Active 2024 Fabrice Arrington, DO [address] [place], [address], [facility] 5 10:25:02 Epididym itis 03031535 Active 2024 Fabrice Arrington, DO [address] [place], [address], [facility] 5 15:35:09 Problem Notes None [...] Updated DateTime 5 180.34 cm 25.9 kg/m2 36009.7 4 g 76 /min 98 % 98 % 126 mm[Hg] 78 mm[Hg] Stone Wise [facility] 5 15:12:06 Social History Question Answer Notes LastModified by Organizat ion Details LastModified Time Tobacco Smoking Status Current Every Day Smoker e-cigg Not Available [facility] 06/09/2020 03:36:24 What Was The Date Of Your Most Recent Tobacco Screening? 10/02/2024 [email or web address] Information not available 10/02/2024 Do You Or Have You Ever Used Any Other Forms Of Tobacco Or Nicotine? No Information not available 03/29/2023 Sex: Unknown Functional Status None recorded. Mental Status None recorded. Family History Nothing Reported. Medical History No medical history recorded. Immunizations Vaccine Type Date Status Note Provider Nam e and Address Organization Details Recorded Time Tdap 04/29/2019 completed Not Available [facility] 05/28/2021 15:39:46 Past Encounters Encounter ID Performer Location Encounter Start Date Encounter Closed Date Diagnosis/Indication Diagnosis SNOMED-CT Code Diagnosis ICD10 Code Diagnosis Note [id number] DO [facility] [address] [address] 10/02/2024 15:00:35 10/02/2024 15:44:15 Dysuria 42093003 R30.0 Epididymitis 87857242 N4 5.1 Stress and adjustment reaction 361446166 F43.9 stop [facility] Concerns Section Related Observation LastModified by Organization Detai ls LastModified Time None Recorded Concern Status LastModified by Organization Details LastModified Time None Recorded Payers Encounter Date Sequence Insurance Name Policy Number Policy Epperson Covered Member ID Epperson Member ID Guarantor Name 10/02/[address] [place] [address] [id number] Sedrick Osorio [id number] Sedrick Osorio Notes Date Note Type Note Provider Name a nd Address Organization Details Recorded Time 10/02/2024 text/html having a burning pain down to left testes and having pins and needles to his penis and also had some pain deeper inside Fabrice Arrington, [address] [place] [address], [place], [address], [facility] 10/02/2024 15:46:33
[2024-10-16 19:04] LABS: Appearance Urine Clear; Color Urine Yellow; Glucose Urine UA Negative (Negative); Leukocyte Esterase Urine Negative (Negative); Nitrite Urine Negative (Negative); PH 6.5 (5.0-9.0); Specific Gravity - Urine 1.015 (1.005-1.025); Urine Blood Negative (Negative); Urine Ketones Negative (Negative); Urine Protein Negative (Neg-Trace)
[2024-10-16 19:10] LABS: Bacteria Urine None Seen (None Seen); Hyaline Casts Urine 0-2 /LPF (0-2); RBC Urine 0-2 /HPF (0-2); Squamous Epithelial Cell Urine 0-2 /HPF (0-2); WBC Urine 0-5 /HPF (0-5)
[2024-10-17 05:27] LABS: CT PCR NOT DETECTED (Not Detect.); NG PCR NOT DETECTED (Not Detect.)
== END 2024-10-16 18:19 | disposition home or self-care (01) ==
LOC: HO.MANLNP 18:18
PROVIDERS: Visit Provider Internal Medicine
DX: R30.0 Dysuria (principal)
CPT/HCPCS: 81001; 87491; 87591

== ENCOUNTER 2024-11-13 13:28 | Outpatient (REF) | payer OTHER, SELFPAY ==
--- NOTE | ~2024-11-13 | US_ITS ---
CLINICAL HISTORY: left testicular pain US scrotum with Color and Duplex doppler. Comparison: None Technique: Real time sonographic imaging, including color-flow imaging, was performed by the agency sales management assistant. Multiple contact representative static images were saved for review. Findings: Right testicle normal size and echotexture, 4.1 x 1.6 x 2.8 cm. Normal color flow. Normal arterial and venous spectral doppler waveforms. No testicular microlithiasis or intratesticular masses. Left testicle normal size and echotexture, 4.3 x 1.5 x 3.3 cm. Normal color flow. Normal arterial and venous spectral doppler waveforms. No testicular microlithiasis or intratesticular masses. Incidental epididymal cysts on the right measuring 3 mm and 2 mm. No hydroceles. Impression: 1. Normal testes. 2. Incidental epididymal cysts on the right. This document has been electronically signed by: Maeto Martinez MD on 11/14/2024 10:33:49
--- OUTSIDE RECORDS SUMMARY | 2024-11-13 15:37 | XMS_ITS | Data Portability ---
Author Organization [facility] Home Service Address [address] [place] [address] Assessment Encounter Date Assessment Date Assessment LastModified by Organization Details LastModified Time 03/29/2023 03/29/2023 [id number] [place] [id number] (MOLD CHANGER) : ISABEL HERNANDEZ MUST MEET 2 OF [...] COVERED Not available 03/29/2023 16:05:24 05/03/2023 05/03/2023 [id number] [place] [address] (MOLD CHANGER) : ISABEL LOW MUST MEET 2 OF [...] COVERED Not available 05/03/2023 17:02:25 10/02/2024 10/02/2024 [id number] [place] [address] (MOLD CHANGER) MDM MODERATE MUST MEET 2 OUT OF [...] urinalysi s complete, reflex culture 2024 025 [facility], [address] [place] [address], [place], [address], 10/03/2024 12:21:01 urinalysi s, dipstick 2024 025 [facility], [address] [facility], [address], [place], [address], 10/02/2024 16:08:15 CMP, serum or plasma 2023 024 [facility], [address] [place] [address], [place], [address], 01/17/2024 11:19:12 PSA, serum or plasma 2023 024 [facility], [address] [place] [address], [id number], 01/17/2024 11:19:13 CBC w/ auto diff 2023 024 [facility], [address] [place] [address], [id number], 01/17/2024 11:19:12 lipid panel, blood 2023 024 [facility], [address] [place] [address], [id number], 01/17/2024 11:19:12 vitamin D, 25-hydrox y, total, serum 2023 024 [facility], [address] [place] [address], [id number], 01/16/2024 13:32:58 vitamin B12 + folate, serum or blood 2022 023 [facility], [address] [place] [address], [id number], 03/29/2023 16:15:32 TSH, serum or plasma 2022 023 [facility], [address] [place] [address], [id number], 03/29/2023 16:15:32 lipid panel, blood 2022 023 [facility], [address] [place] [address], [id number], 03/29/2023 16:15:32 CMP, serum or plasma 2022 023 [facility], [address] [place] [address], [id number], 03/29/2023 16:15:32 CBC w/ auto diff 2022 023 [facility], [address] [place] [address], [id number], 03/29/2023 16:15:32 Referral None recorded. Procedures None recorded. Surgeries None recorded. Imaging XR, knee, 3 view 2023 024 [facility], [address] [facility], [place], [address], 01/30/2024 08:06:26 Medication Orders sulfameth oxazole 800 mg-trimet hoprim 160 mg tablet 2024 025 [facility] #[id number], [address], [place], [id number], 10/02/2024 15:35:50 trazodone 100 mg tablet [address] [facility] #[id number], [address], [place], [id number], 01/16/2024 13:32:58 buspirone 10 mg tablet [address] [facility] #[id number], [address], [place], [id number], 10/02/2024 15:39:15 clonazepa m 0.5 mg tablet 2022 023 [facility] #[id number], [address], [place], [id number], 03/29/2023 16:08:11 duloxetin e 30 mg capsule,d elayed release 2022 024 [facility] #[id number], [address], [place], [id number], 01/16/2024 09:09:14 Patient TargetsNo targets recorded. Patient Instructions Encounter Date Encounter Id Patient Instructions Last Modified By Organization Details Last Modified Time 03/29/2023 [id number] high cholesterol : care instructions Not available 03/29/2023 16:08:03 10/02/2024 [id number] painful urinatio n (dysuria): care instructions Not available 10/02/2024 15:35:39 epididymitis and orchitis: care instructions Not available 10/02/2024 15:35:38 Reason for Referral None Reported. Results Created Date Observation Date Name Description Value Unit Range Abnormal Flag Note LastModifiedBy Organization Detail LastModifiedTime 10/02/19 25 10/02/2024 urina lysis , dipst ick Leukocytes Negati ve Not Available [facility] [address], [place], [address], 10/02/2024 15:14:27 10/02/19 25 10/02/2024 urina lysis , dipst ick Nitrite negati ve Not Available [address], [place], [address], 10/02/2024 15:14:27 10/02/19 25 10/02/2024 urina lysis , dipst ick Urobilinogen .2 Not Available [address], [place], [address], 10/02/2024 15:14:27 10/02/19 25 10/02/2024 urina lysis , dipst ick Protein Trace Not Available [address], [place], [address], 10/02/2024 15:14:27 10/02/19 25 10/02/2024 urina lysis , dipst ick pH 6.0 Not Available [address], [place], [address], 10/02/2024 15:14:27 10/02/19 25 10/02/2024 urina lysis , dipst ick Blood Negati ve Not Available [address], [place], [address], 10/02/2024 15:14:27 10/02/19 25 10/02/2024 urina lysis , dipst ick Specific [place] 1.020 Not Available [facility] [address] [facility] [address] [address], [place], [address], 10/02/2024 15:14:27 10/02/19 25 10/02/2024 urina lysis , dipst ick Ketone Trace Not Available [facility] [address] [facility] [address] [address], [place], [address], 10/02/2024 15:14:27 10/02/19 25 10/02/2024 urina lysis , dipst ick Bilirubin Small Not Available [facility] [address] [facility] [address], [place], [address], 10/02/2024 15:14:27 10/02/19 25 10/02/2024 urina lysis , dipst ick Glucose Negati ve Not Available [facility] [address] [facility] [address], [place], [address], 10/02/2024 15:14:27 10/02/19 25 10/02/2024 urina lysis , dipst ick Appearance Clear Not Available [address], [place], [address], 10/02/2024 15:14:27 10/02/19 25 10/02/2024 urina lysis , dipst ick Color Yellow Not Available [facility] [address] [facility] [address], [place], [address], 10/02/2024 15:14:27 Result Notes None recorded. Problems Name Problem SNOMED Code Status Onset Date Resolution Date Notes Provider Name and Address Organization Details Recorded Time Hyperlip idemia 81209440 Active 2020 Fabrice Arrington DO [address] [facility], [place], [address], [facility] 16:36:45 Insomnia 608443259 Active 2021 Fabrice Arrington, DO [address] [place] [address], [address], [facility] 2 16:36:55 Anxiety 02505541 Active 2021 Fabrice Arrington, DO [address] [place] [address], [address], [facility] 2 16:42:45 Neuralgi a 48316119 Active 2017 [facility] 8 10:26:40 Pain of left knee joint 73682214206 4107 Active 2023 Fabrice Morales Juvencio DO [address] [place] [address], [address], [facility] 4 09:17:52 Stress and adjustme nt reaction 556634207 Active 2023 Fabrice TiannaTed Arrington DO [address] [place] [address], [address], [facility] 4 09:20:51 Dysuria- frequenc y syndrome 8868470 Active 2024 Fabrice Arrington DO [address] [place] [address], [address], [facility] 5 09:59:48 Dysuria 12007722 Active 2024 Fabrice Arrington DO [address] [place] [address], [address], [facility] 5 10:25:02 Epididym itis 57177157 Active 2024 Fabrice Arrington DO [address] [place] [address], [address], [facility] 5 15:35:09 Pain of left testicle 22643756148 498508 Active 2024 Fabrice Arrington DO [address] [place] [address], [address], [facility] 5 14:54:17 Problem Notes None recorded. Medical Equipment None [...] completed Not Available Not Available Not Available moxifloxaci n 400 mg tablet TAKE 1 TABLET BY MOUTH EVERY DAY FOR 10 DAYS active Not Available Not Available No t Available ciprofloxac in 500 mg tablet TAKE [...] Updated DateTime 2 181.61 cm 24.7 kg/m2 10172.2 7 g 90 /min 96 % 96 % 130 mm[Hg] 70 mm[Hg] Fabrice Arrington DO [address] [place], [address] 2 09:06:01 Date Recorded Body height Body mass index (BMI) Body weight Heart rate Oxygen saturation Oxygen saturation in Arterial blood by Pulse oximetry Systolic blood pressure Diastolic blood pressure Provider Name and Address Organization Details Last Updated DateTime 3 180.34 cm 25.9 kg/m2 55555.1 8 g 81 /min 98 % 98 % 155 mm[Hg] 88 mm[Hg] Allie Otero [facility] 3 15:27:00 Date Recorded Body height Body mass index (BMI) Body weight Heart rate Oxygen saturation Oxygen saturation in Arterial blood by Pulse oximetry Systolic blood pressure Diastolic blood pressure Provider Name and Address Organization Details Last Updated DateTime 3 180.34 cm 25.4 kg/m2 14143.5 3 g 110 /min 99 % 99 % 126 mm[Hg] 72 mm[Hg] Fabrice Arrington DO [address] [place], [address] 3 16:37:17 Date Recorded Body height Body mass index (BMI) Body weight Heart rate Oxygen saturation Oxygen saturation in Arterial blood by Pulse oximetry Systolic blood pressure Diastolic blood pressure Provider Name and Address Organization Details Last Updated DateTime 4 180.34 cm 26.5 kg/m2 94568.9 1 g 90 /min 97 % 97 % 132 mm[Hg] 78 mm[Hg] Sheela Ramirez [facility] 4 08:59:00 Date Recorded Body height Body mass index (BMI) Body weight Heart rate Oxygen saturation Oxygen saturation in Arterial blood by Pulse oximetry Systolic blood pressure Diastolic blood pressure Provider Name and Address Organization Details Last Updated DateTime 5 180.34 cm 25.9 kg/m2 86054.7 4 g 76 /min 98 % 98 % 126 mm[Hg] 78 mm[Hg] Stone Jaramilloin [facility] 5 15:12:06 Social History Question Answer Notes LastModified by Organizat ion Details LastModified Time Tobacco Smoking Status Current Every Day Smoker e-cigg Not Available [facility] 06/09/2020 03:36:24 What Was The [...] Recorded Time Tdap 04/29/2019 completed Not Available [facility] 05/28/2021 15:39:46 Past Encounters Encounter ID Performer Location Encounter Start Date Encounter Closed Date Diagnosis/Indication Diagnosis SNOMED-CT Code Diagnosis ICD10 Code Diagnosis Note [id number] Fabrice Arrington DO [facility] [address] [place] [address] 01/09/2018 11:43:45 01/09/2018 12:21:19 Adult health examination 406926887 Z00.00 will add sertraline again and go with a higher dose taken in the evening Active or passive immunization 773531349 Z23 [id number] Fabrice Arrington DO [facility] [address] [facility] [place] [address] 02/21/2018 11:34:08 02/21/2018 13:49:[address] [facility] 60797974 R73.9 will re chk lab in 6 weeks early chk A1c and glucose [id number] Fabrice Arrington [facility] [address] [facility] [address] [address] 04/25/2018 13:34:01 04/25/2018 14:17:27 Hyperglycemia 04126846 R73.9 will re chk lab in 6 months early november chk A1c and glucose [id number] Fabrice Arrington [facility] [address] [facility] [address] [address] 12/01/2020 09:44:23 12/01/2020 11:32:36 Active or passive immunization 780409839 Z23 will need shingles vacc in 10 yrs he will also need colonsocop y soon Adult heal th examination 958094325 Z00.00 doing well no major issues Screening for malignant neoplasm of colon 653534324 Z12.11 had one at 40 yrs age will order Anxiety 58749787 F41.9 Tinea cruris 616382687 B 35.6 [id number] Fabrice Arrington [facility] [address] [facility] [address] [address] 12/06/2021 15:36:33 12/07/2021 08:11:41 Hyperlipidemia 84077289 E78.5 will need lab and have him get fbw Insomnia 283813679 G47.0 0 we will try the lower Anxiety 26422878 F41.9 was on citalopram now having similar sympt we will try the trazodone first and [place] [id number] Fabrice Arrington [facility] [address] [facility] [address] [address] 03/04/2022 09:00:55 03/04/2022 10:15:47 Active or passive immunization 294157632 Z23 will need shingles vacc in 10 yrs he will also need colonsocop y soon Adult heal th examination 964313209 Z00.00 doing well no major issueslong discuss re lab etc we will have him cont to eat well stay active and rechk a cholestero l in 1 year after this we will then consider ordering a ct heart calcium score [id number] Fabrice Arrington [facility] [address] [facility] [address] [place] [address] 03/29/2023 15:05:01 03/29/2023 16:19:13 Hyperlipidemia 05275351 E78.5 will need lab and have him get fbw Anxiety 90359767 F41.9 we will have him try duloxetine and willsee in 4 weeks also we will refill clonazepam instead of lorazepam [id number] Fabrice Arrington [facility] [address] [facility] [address] [address] 05/03/2023 16:01:50 05/05/2023 08:07:02 Anxiety 52336301 F41.9 did not tolerate the duloxetine has had some diarrhea and on edge but other days was betterwill try buspirone Hyperlipidemia 77020925 E78.5 will need lab and have him get fbw [id number] Fabrice Arrington [facility] [address] [facility] [address] [employer] [place] [address] 01/16/2024 08:51:16 01/16/2024 11:16:39 Active or passive immunization 310248194 Z23 will need shingles vacc in 10 yrs he will also need colonsocop y soon Adult heal th examination 767367075 Z00.00 doing well no major issueslong discuss re lab etc we will have him cont to eat well stay active and rechk a cholestero l in 1 year after this we will then consider ordering a ct heart calcium score Depression screening 171 114506 Z13.31 SCREENING NEGATIVE Stress and adjustment reaction 450063452 F43.9 stop buspar Insomnia 396021232 G47.0 0 we will try increasing the traz to help with the stresshe will stop the buspar Pain of le ft knee joint 4699770008 73022 M25.562 obvious damage to palpation and pt relates pain will start with xray [id number] Fabrice Arrington [facility] [address] [facility] [address] [address] 10/02/2024 15:00:35 10/02/2024 15:44:15 Dysuria 11577633 R30.0 Epididymitis 22012338 N4 5.1 Stress and adjustment reaction 037881571 F43.9 stop buspar Health Concerns Section Related Observation LastModified by Organization Burak ls LastModified Time None Recorded Concern Status LastModified by Organization Details LastModified Time None Recorded Advance Directives Directive None Recorded Payers Encounter Date Sequence Insurance Name Policy Number Policy Epperson Covered Member ID Epperson Member ID Guarantor Name 03/04/2022 1 [facility] [id number] Sedrick Devon [id number] Sedrick Devon 03/29/2023 1 [facility] [id number] Sedrick Devon [id number] Sedrick Devon 05/03/2023 1 [facility] [id number] Sedrick Devon [id number] Sedrcik Devon 01/16/2024 1 [facility] [id number] Sedrick Devon [id number] Sedrick Devon 10/02/2024 1 [facility] [id number] Sedrick Devon [id number] Sedrick Devon Notes Date Note Type Note Provider Name a or Address Organization Details Recorded Time 2 text/html [...] hearing Vision:no vision problems Fabrice Arrington DO [address] [place] [address], [address], [facility] 03/04/2022 09:50:53 3 text/html here for rechk and relates that he has been still anxiouslong detailed discussion re anxiety and stress and feeling down and treatment opitons Fabrice Arrington DO [address] [place], [address], [facility] 03/29/2023 16:12:39 3 text/html here for rechk tianna villa states tried to take the diloxetine and states that first week was not too good and had some diarrheastates has had couple days not feeling well and stayed in bedthis week had a panic attack Fabrice Arrington DO [address] [place] [address], [address], [facility] 05/03/2023 17:12:22 4 text/html [...] hearing Vision:no vision problems Fabrice Arrington DO [address] [place] [address], [address], [facility] 01/16/2024 09:21:21 5 text/html having a burning pain down to left testes and having pins and needles to his penis and also had some pain deeper inside Fabrice Arrington DO [address] [place] [address], [address], [facility] 10/02/2024 15:46:33
== END 2024-11-13 13:29 | disposition home or self-care (01) ==
LOC: HO.US 13:28
PROVIDERS: PCP Internal Medicine; Visit Provider Internal Medicine
DX: N50.812 Left testicular pain (principal)
CPT/HCPCS: 76870

== ENCOUNTER → 2024-11-13 14:03 | Outpatient (BNV) | payer OTHER, SELFPAY | PROVIDERS: PCP Internal Medicine; Visit Provider Radiology Diagnostic Radiology | DX: N50.3 Cyst of epididymis (principal) | CPT/HCPCS: 76870; 93976 ==

== ENCOUNTER 2024-12-10 08:57 | Outpatient (AMB) | payer OTHER, SELFPAY ==
--- NOTE | 2024-12-10 09:03 | MHC.OFFVIS ---
Intake Visit Reasons: Left testicular pain Intake Note: Patient is present for LEFT TESTICULAR PAIN Urology Medication:NONE Antibiotic Allergy:NONE Blood Thinner:NONE Logistics Vice President Required: No Allergies No Known Allergies Allergy (Verified 12/10/24 09:04) HPI Comments Details: Sedrick is a pleasant male. He is a patient of Dr. Henning. He is seen for the following urologic conditions - testicular discomfort - lower urinary tract symptoms Testicular discomfort Evaluated with PCP Ultrasound with small right epididymal cysts Symptoms have resolved Discussed use of nonsteroidals for intermittent epididymitis Lower urinary tract symptoms Progressive urinary urgency and frequency Minimal nocturia Drinks 20 oz coffee in the morning Discussed trial of tadalafil for bladder stabilization Three-month trial Review of Systems Const Denies chills and Denies fever(s) Card Reports no additional complaints and Denies syncope Resp Denies cough GI Denies abdominal pain and Denies heartburn Reports as per HPI and Denies change in libido Neuro Denies syncope Psych Denies change in libido Endo Denies change in libido Physical Exam Const General: cooperative, healthy appearing, comfortable and no acute distress Orientation/consciousness: patient oriented x3 HEENT Face and sinus: Yes normal facial exam Mouth: moist mucous membranes Neck Neck: Yes normal visual inspection, Yes full ROM and Yes trachea midline Chest Chest palpation & inspection: normal inspection of the chest Resp Effort & Inspection: normal respiratory effort, able to speak in complete sentences and no respiratory distress GI Inspection: Yes normal to inspection Back/Spine/Pelvis Cervical Spine: normal cervical lordosis Thoracic/Lumbar Spine: thoracic and lumbar spine normal to inspection Skin General skin exam: no rashes or lesions noted Neuro General: patient oriented x3, gait normal, tone normal and moves all extremities Extrem General: Yes normal to inspection and Yes capillary refill normal Results AMB Urinalysis, Automated UA Leukoctes 0 Stephanie/uL Last Edit by KASSIE Wallace on 12/10/24 09:23 UA Nitrite Negative Last Edit by KASSIE Wallace on 12/10/24 09:23 UA Urobilinogen 0.2 mg/dL Last Edit by KASSIE Wallace on 12/10/24 09:23 UA Protein 0 mg/dL Last Edit by KASSIE Wallace on 12/10/24 09:23 UA pH 7.0 Last Edit by KASSIE Wallace on 12/10/24 09:23 UA Blood 0 Larry/uL Last Edit by KASSIE Wallace on 12/10/24 09:23 UA Specific [place] 1.015 Last Edit by KASSIE Wallace on 12/10/24 09:23 UA Ketone Negative Last Edit by KASSIE Wallace on 12/10/24 09:23 UA Bilirubin 0 mg/dL Last Edit by KASSIE Wallace on 12/10/24 09:23 UA Glucose 0 mg/dL Last Edit by KASSIE Wallace on 12/10/24 09:23 Results Reviewed Results Reviewed: Laboratory Last Values Urine pH (Auto) 7.0 12/10/24 09:23 Specific [place] (Auto) 1.015 12/10/24 09:23 Urine Protein (Auto) 0 mg/dL 12/10/24 09:23 Glucose (UA)(Auto) 0 mg/dL 12/10/24 09:23 Urine Ketones (Auto) Negative 12/10/24 09:23 Urine Blood (Auto) 0 Larry/uL 12/10/24 09:23 Urine Nitrite (Auto) Negative 12/10/24 09:23 Urine Bilirubin (Auto) 0 mg/dL 12/10/24 09:23 Urine Urobilinogen (Auto) 0.2 mg/dL 12/10/24 09:23 Leukocyte Esterase (Auto) 0 Stephanie/uL 12/10/24 09:23 Assessment & Plan Assessment & Plan (1) Bladder outlet obstruction: Code(s): N32.0 - Bladder-neck obstruction Category: Medical Plan Three-month follow-up tele Orders: Orders AMB Urinalysis Automated Today Z13.9 - Encounter for screening, unspecified Medications: New tadalafil [id number] [facility] [id number] Member [id number] 5 mg PO DAILY 90 days 90 tabs 0RF sexual activity N32.0 - Bladder-neck obstruction Patient Instructions: This note is constructed using voice recognition software. While every effort has been made to ensure accuracy oyster buyer errors may have been included. Imaging studies, laboratory and physical exam results were discussed and reviewed in detail. No major barriers to patient understanding were identified. An opportunity to ask questions regarding the treatment plan was provided. All questions were answered. The patient expressed understanding and agreement with the above treatment plan. The patient is aware they should contact our office by phone for worsening of their current condition or the appearance of new urologic symptoms. Compliance is encouraged with any medications and followup testing that is ordered. It is a privilege to participate in the urologic care of your patient. If you have any questions or concerns regarding treatment for the above conditions, or other urologic issues, please do not hesitate to contact me. The office telephone contact is [phone]. Sincerely, Dr Leobardo Banda MD, [facility] - Urology Compassionate Specialist Care for the Genitourinary System Coding Level of Care Code New Pt Level 4 (84590) Diagnoses Bladder outlet obstruction N32.0
--- OUTSIDE RECORDS SUMMARY | 2024-12-10 09:35 | XMS_ITS | Data Portability ---
Author Organization [facility] Home Service Address [address] [place] [address] Assessment Encounter Date Assessment Date Assessment LastModified by Organization Details LastModified Time 03/29/2023 03/29/2023 [id number] [place] [id number] (OFFICE ADMINISTRATOR) : ISABEL HERNANDEZ MUST MEET 2 OF [...] COVERED Not available 03/29/2023 16:05:24 05/03/2023 05/03/2023 [id number] [place] [id number] (OFFICE ADMINISTRATOR) : ISABEL LOW MUST MEET 2 OF [...] COVERED Not available 05/03/2023 17:02:25 10/02/2024 10/02/2024 [id number] [place] [id number] (OFFICE ADMINISTRATOR) MDM MODERATE MUST MEET 2 OUT OF [...] urinalysi s complete, reflex culture 2024 025 [facility], [address] [place] [address], [place], [address], 10/03/2024 12:21:01 urinalysi s, dipstick 2024 025 [facility], [address] [facility], [address], [place], [address], 10/02/2024 16:08:15 CMP, serum or plasma 2023 024 [facility], [address] [place] [address], [place], [address], 01/17/2024 11:19:12 PSA, serum or plasma 2023 024 [facility], [address] [place] [address], [id number], 01/17/2024 11:19:13 CBC w/ auto diff 2023 024 [facility], [address] [place] [address], [address], 01/17/2024 11:19:12 lipid panel, blood 2023 024 [facility], [address] [place] [address], [id number], 01/17/2024 11:19:12 vitamin D, 25-hydrox y, total, serum 2023 024 [facility], [address] [place] [address], [address], 01/16/2024 13:32:58 vitamin B12 + folate, serum or blood 2022 023 [facility], [address] [place] [address], [address], 03/29/2023 16:15:32 TSH, serum or plasma 2022 023 [facility], [address] [place] [address], [address], 03/29/2023 16:15:32 lipid panel, blood 2022 023 [facility], [address] [place] [address], [address], 03/29/2023 16:15:32 CMP, serum or plasma 2022 023 [facility], [address] [place] [address], [address], 03/29/2023 16:15:32 CBC w/ auto diff 2022 023 [facility], [address] [place] [address], [address], 03/29/2023 16:15:32 Referral None recorded. Procedures None recorded. Surgeries None recorded. Imaging XR, knee, 3 view 2023 024 [facility] Central Scheduling, [address] [facility], [place], [address], 01/30/2024 08:06:26 Medication Orders sulfameth oxazole 800 mg-trimet hoprim 160 mg tablet 2024 025 [facility] #[id number], [address], [place], [id number], 10/02/2024 15:35:50 trazodone 100 mg tablet [address] [facility] #[id number], [address], [place], [id number], 01/16/2024 13:32:58 buspirone 10 mg tablet [address] [facility] #76519, [address], [place], [id number], 10/02/2024 15:39:15 clonazepa m 0.5 mg tablet 2022 023 [facility] #13312, [address], [place], [id number], 03/29/2023 16:08:11 duloxetin e 30 mg capsule,d elayed release 2022 024 [facility] #96526, [address], [place], [id number], 01/16/2024 09:09:14 Patient TargetsNo targets recorded. Patient Instructions Encounter Date Encounter Id Patient Instructions Last Modified By Organization Details Last Modified Time 03/29/2023 [id number] high cholesterol : care instructions Not available 03/29/2023 16:08:03 10/02/2024 [id number] painful urinatio n (dysuria): care instructions Not available 10/02/2024 15:35:39 epididymitis and orchitis: care instructions Not available 10/02/2024 15:35:38 Reason for Referral None Reported. Results Created Date Observation Date Name Description Value Unit Range Abnormal Flag Note LastModifiedBy Organization Detail LastModifiedTime 10/02/19 25 10/02/2024 urina lysis , dipst ick Leukocytes Negati ve Not Available [facility] Internal [address], [place], [address], 10/02/2024 15:14:27 10/02/19 25 10/02/2024 urina lysis , dipst ick Nitrite negati ve Not Available [address], [place], [address], 10/02/2024 15:14:27 10/02/19 25 10/02/2024 urina lysis , dipst ick Urobilinogen .2 Not Available [address], [place], [address], 10/02/2024 15:14:27 10/02/19 25 10/02/2024 urina lysis , dipst ick Protein Trace Not Available [address], [place], [address], 10/02/2024 15:14:27 10/02/19 25 10/02/2024 urina lysis , dipst ick pH 6.0 Not Available [address], [place], [address], 10/02/2024 15:14:27 10/02/19 25 10/02/2024 urina lysis , dipst ick Blood Negati ve Not Available [address], [place], [address], 10/02/2024 15:14:27 10/02/19 25 10/02/2024 urina lysis , dipst ick Specific [place] 1.020 Not Available [facility] Internal Medicine [address] [facility] [address], [place], [address], 10/02/2024 15:14:27 10/02/19 25 10/02/2024 urina lysis , dipst ick Ketone Trace Not Available [facility] Internal Medicine [address] [facility] [address], [place], [address], 10/02/2024 15:14:27 10/02/19 25 10/02/2024 urina lysis , dipst ick Bilirubin Small Not Available [facility] Internal Medicine [address] [facility] [address], [place], [address], 10/02/2024 15:14:27 10/02/19 25 10/02/2024 urina lysis , dipst ick Glucose Negati ve Not Available [facility] Internal [facility] [address] [facility] [address], [place], [address], 10/02/2024 15:14:27 10/02/19 25 10/02/2024 urina lysis , dipst ick Appearance Clear Not Available [facility] Internal [facility] [address] [facility] [address], [place], [address], 10/02/2024 15:14:27 10/02/19 25 10/02/2024 urina lysis , dipst ick Color Yellow Not Available [facility] Internal [facility] [address] [facility] [address], [place], [address], 10/02/2024 15:14:27 11/15/19 25 11/13/2024 US, testi mari No observ ation record ed. [facility] (Medical Records) [address] [facility], [place], [address], 11/17/2024 19:24:48 11/15/19 25 11/13/2024 US, testi mari No observ ation record ed. [facility] (Medical Records) [address] [facility], [place], [address], 11/17/2024 19:24:30 Result Notes None recorded. Problems Name Problem SNOMED Code Status Onset Date Resolution Date Notes Provider Name and Address Organization Details Recorded Time Hyperlip idemia 82526378 Active 2020 Fabrice Arrington DO [address] [place] [address], [address], [facility] 1 16:36:45 Insomnia 052724092 Active 2021 Fabrice Arrington DO [address] [place] [address], [address], [facility] 2 16:36:55 Anxiety 20249536 Active 2021 Fabrice Arrington DO [address] [place] [address], [address], [facility] 2 16:42:45 Neuralgi a 84468360 Active 2017 [facility] Sammie Yeboah [facility] 8 10:26:40 Pain of left knee joint 91565112726 4107 Active 2023 Fabrice Arrington DO [address] [place] [address], [address], [facility] 4 09:17:52 Stress and adjustme nt reaction 333259781 Active 2023 Fabrice Arrington DO [address] [place] [address], [address], [facility] 4 09:20:51 Dysuria- frequenc y syndrome 6788322 Active 2024 Fabrice Arrington DO [address] [place] [address], [address], [facility] 5 09:59:48 Dysuria 52173413 Active 2024 Fabrice Arrington DO [address] [place] [address], [address], [facility] 5 10:25:02 Epididym itis 11822057 Active 2024 Fabrice Arrington, DO [address] [facility], [place], [address], [facility] 5 15:35:09 Pain of left testicle 64997454064 458153 Active 2024 Fabrice Arrington, DO [address] [place], [address], [facility] 5 14:54:17 Problem Notes None recorded. Procedures Surgical History None recorded. Imaging Results Imaging Date Name Status LastModified by Organiz ation Details LastModified Time 11/13/2024 US, testicle completed [facility] (Medical Records) [address] [place], [address], 11/17/2024 19:24:48 11/13/2024 US, testicle completed [facility] (Medical Records) [address] [place], [address], 11/17/2024 19:24:30 Procedure Notes None recorded. Medical Equipment None Reported. [...] TABLET BY MOUTH THREE TIMES DAILY NEEDED 2024 active Not Available Not Available Not [...] Updated DateTime 2 181.61 cm 24.7 kg/m2 63394.2 7 g 90 /min 96 % 96 % 130 mm[Hg] 70 mm[Hg] Fabrice Arrington, DO [address] [place], [address] [place] [address] Internal Medicine 2 09:06:01 Date Recorded Body height Body mass index (BMI) Body weight Heart rate Oxygen saturation Oxygen saturation in Arterial blood by Pulse oximetry Systolic blood pressure Diastolic blood pressure Provider Name and Address Organization Details Last Updated DateTime 3 180.34 cm 25.9 kg/m2 15777.1 8 g 81 /min 98 % 98 % 155 mm[Hg] 88 mm[Hg] Allie Otero [facility] 3 15:27:00 Date Recorded Body height Body mass index (BMI) Body weight Heart rate Oxygen saturation Oxygen saturation in Arterial blood by Pulse oximetry Systolic blood pressure Diastolic blood pressure Provider Name and Address Organization Details Last Updated DateTime 3 180.34 cm 25.4 kg/m2 45769.5 3 g 110 /min 99 % 99 % 126 mm[Hg] 72 mm[Hg] Fabrice Arrington, DO [address] [place], [address], [facility] 3 16:37:17 Date Recorded Body height Body mass index (BMI) Body weight Heart rate Oxygen saturation Oxygen saturation in Arterial blood by Pulse oximetry Systolic blood pressure Diastolic blood pressure Provider Name and Address Organization Details Last Updated DateTime 4 180.34 cm 26.5 kg/m2 22543.9 1 g 90 /min 97 % 97 % 132 mm[Hg] 78 mm[Hg] Sheelajory Ramirez [facility] Internal [facility] 4 08:59:00 Date Recorded Body height Body mass index (BMI) Body weight Heart rate Oxygen saturation Oxygen saturation in Arterial blood by Pulse oximetry Systolic blood pressure Diastolic blood pressure Provider Name and Address Organization Details Last Updated DateTime 5 180.34 cm 25.9 kg/m2 20315.7 4 g 76 /min 98 % 98 % 126 mm[Hg] 78 mm[Hg] Stone Paris [facility] 5 15:12:06 Social History Question Answer Notes LastModified by Organizat ion Details LastModified Time Tobacco Smoking Status Current Every Day Smoker e-cigg Not Available [facility] 06/09/2020 03:36:24 What Was The Date Of Your Most Recent Tobacco Screening? 10/02/2024 [email or web address] Information not available 10/02/2024 Do You Or Have You Ever Used Any Other Forms Of Tobacco Or Nicotine? No [email or web address] Information not available 03/29/2023 Sex: Unknown Functional Status None recorded. Mental Status None recorded. Family History Nothing Reported. Medical History No medical history recorded. Immunizations Vaccine Type Date Status Note Provider Randy santiago and Address Organization Details Recorded Time Tdap 04/29/2019 completed Not Available [facility] 05/28/2021 15:39:46 Past Encounters Encounter ID Performer Location Encounter Start Date Encounter Closed Date Diagnosis/Indication Diagnosis SNOMED-CT Code Diagnosis ICD10 Code Diagnosis Note [id number] Fabrice Arrington [facility] [address] [facility] [address] 01/09/2018 11:43:45 01/09/2018 12:21:19 Adult health examination 820376078 Z00.00 will add sertraline again and go with a higher dose taken in the evening Active or passive immunization 600928259 Z23 [id number] Fabrice Arrington [facility] [address] [facility],[place] [address] 02/21/2018 11:34:08 02/21/2018 13:49:55 Hyperglycemia 59478329 R73.9 will re chk lab in 6 weeks early chk A1c and glucose [id number] Fabrice Arrington [facility] [address],[place] [address] 04/25/2018 13:34:01 04/25/2018 14:17:27 Hyperglycemia 85193606 R73.9 will re chk lab in 6 months early november chk A1c and glucose [id number] Fabrice Arrington [facility] [address] [facility],[place] [address] 12/01/2020 09:44:23 12/01/2020 11:32:36 Active or passive immunization 348051591 Z23 will need shingles vacc in 10 yrs he will also need colonsocop y soon Adult heal th examination 264533120 Z00.00 doing well no major issues Screening for malignant neoplasm of colon 251070933 Z12.11 had one at 40 yrs age will order Anxiety 82445157 F41.9 Noe casanova 330315426 B 35.6 [id number] Fabrice Arrington [facility] [address] [facility], [place] [address] 12/06/2021 15:36:33 12/07/2021 08:11:41 Hyperlipidemia 04245003 E78.5 will need lab and have him get fbw Insomnia 793355066 G47.0 0 we will try the lower Anxiety 35531458 F41.9 was on citalopram now having similar sympt we will try the trazodone first and [place] [id number] Fabrice Carmen Arrington [facility] [address] [facility],[place] [address] 03/04/2022 09:00:55 03/04/2022 10:15:47 Active or passive immunization 681818279 Z23 will need shingles vacc in 10 yrs he will also need colonsocop y soon Adult heal th examination 612376983 Z00.00 doing well no major issueslong discuss re lab etc we will have him cont to eat well stay active and rechk a cholestero l in 1 year after this we will then consider ordering a ct heart calcium score [id number] Fabrice Arrington [facility] [address] [place] [address],[place] [address] 03/29/2023 15:05:01 03/29/2023 16:19:13 Hyperlipidemia 88981782 E78.5 will need lab and have him get fbw Anxiety 50932390 F41.9 we will have him try duloxetine and willsee in 4 weeks also we will refill clonazepam instead of lorazepam [id number] Fabrice Carmen Arrington [facility] [address], [address] [facility] [place] [address] 05/03/2023 16:01:50 05/05/2023 08:07:02 Anxiety 56675389 F41.9 did not tolerate the duloxetine has had some diarrhea and on edge but other days was betterwill try buspirone Hyperlipidemia 86610974 E78.5 will need lab and have him get fbw [id number] Fabrice Arrington DO [facility] Internal Medicine [address] [facility] [address],[place] [address] 01/16/2024 08:51:16 01/16/2024 11:16:39 Active or passive immunization 494530855 Z23 will need shingles vacc in 10 yrs he will also need colonsocop y soon Adult heal th examination 134930398 Z00.00 doing well no major issueslong discuss re lab etc we will have him cont to eat well stay active and rechk a cholestero l in 1 year after this we will then consider ordering a ct heart calcium score Depression screening 171 844460 Z13.31 SCREENING NEGATIVE Stress and adjustment reaction 215049786 F43.9 stop buspar Insomnia 503916426 G47.0 0 we will try increasing the traz to help with the stresshe will stop the buspar Pain of le ft knee joint 1775140018 91382 M25.562 obvious damage to palpation and pt relates pain will start with xray [id number] Fabrice Arrington DO [facility] [address] [facility],[place] [address] 10/02/2024 15:00:35 10/02/2024 15:44:15 Dysuria 96467449 R30.0 Epididymitis 81677612 N4 5.1 Stress and adjustment reaction 335875773 F43.9 stop buspar Health Concerns Section Related Observation LastModified by Organization Detai ls LastModified Time None Recorded Concern Status LastModified by Organization Details LastModified Time None Recorded Advance Directives Directive None Recorded Payers Encounter Date Sequence Insurance Name Policy Number Policy Epperson Covered Member ID Epperson Member ID Guarantor Name 03/04/2022 1 [facility] [id number] Sedrick Osorio [id number] Sedrick Osorio 03/29/2023 1 [facility] [id number] Sedrick Osorio [id number] Sedrick Osorio 05/03/2023 1 [facility] [id number] Sedrick Osorio [id number] Sedrick Osorio 01/16/2024 1 [facility] [id number] Sedrick Osorio [id number] Sedrick Osorio 10/02/[address] [place] [address] [id number] Sedrick Cochrantaine [id number] Sedrick Devon Notes Date Note Type Note [...] Vision:no vision problems Fabrice Arrington DO [address] [place] [address], [address], [facility] 03/04/2022 09:50:53 3 text/html here for narayan and relates that he has been still anxiouslong detailed discussion re anxiety and stress and feeling down and treatment opitons Fabrice Arrington DO [address] [place] [address], [address], [facility] 03/29/2023 16:12:39 3 text/html here for rechk a nd states tried to take the diloxetine and states that first week was not too good and had some diarrheastates has had couple days not feeling well and stayed in bedthis week had a panic attack Fabrice Arrington DO [address] [place] [address], [address], [facility] 05/03/2023 17:12:22 4 [...] Vision:no vision problems Fabrice Arrington DO [address] [place] [address], [address], [facility] 01/16/2024 09:21:21 5 text/html having a burning pain down to left testes and having pins and needles to his penis and also had some pain deeper inside Fabrice Arrington DO [address] [place] [address], [address], [facility] 10/02/2024 15:46:33
== END 2024-12-10 09:47 | disposition home or self-care (01) ==
LOC: HO.HUSH 08:57
PROVIDERS: PCP Internal Medicine; Visit Provider Urology
DX: Z13.9 Encounter for screening, unspecified (principal); N32.0 Bladder-neck obstruction
CPT/HCPCS: 99204

== ENCOUNTER → 2024-12-10 08:57 | Outpatient (BNVA) | payer OTHER, SELFPAY | PROVIDERS: PCP Internal Medicine; Visit Provider Urology | DX: N32.0 Bladder-neck obstruction (principal) | CPT/HCPCS: 81003 ==

== ENCOUNTER 2025-01-28 12:17 | Outpatient (REF) | payer OTHER, SELFPAY ==
--- OUTSIDE RECORDS SUMMARY | 2025-01-28 13:48 | XMS_ITS | Encounter Summary ---
Author Organization [facility] Address [address] [place] [address] Care Team Providers Care Collar Sewer Name Role Phone Fabrice Henning DO Primary Care Provider [phone] Encounter Details Date Type Department Care Team (Late st Contact Info) Description 01/16/[address] [facility] - Main Lab [address] [facility] [place] [address] Desmond Hendrickson MD [address] [facility] [address] [place] [address] Benign prostatic hyperplasia with lower urinary tract symptoms Social History Tobacco Use Types Packs/Day Years Used Date Smoking Tobacco: Never Assessed Sex and Gender Information Value Date Recorded Sex Assigned at Not on file Legal Sex Male 12:46 PM EDT Gender Identity Not on file Sexual Orientation Not on file documented as of this encounter Plan of Treatment Not on file documented as of this encounter Procedures Procedure Name Priority Date/Time Associated Diagnosis Comments PROSTATE SPECIFIC ANTIGEN DIAGNOSTIC Routine 01/16/2025 9:50 AM EDT Benign prostatic hyperplasia with lower urinary tract symptoms documented in this encounter Results * Prostate specific antigen diagnostic (01/16/2025 9:50 AM EDT) PSA 0.31 0.00 - 4.00 ng/mL LAB CHEMISTRY METHOD 01/16/2025 2:19 PM EDT [facility] Blood Venous blood specimen / Unknown 01/16/2025 9:50 AM EDT 01/16/2025 12:51 PM EDT Narrative [facility] - 01/16/2025 2:19 PM EDT The Siemens Advia Centaur Chemiluminescent Immunoassay is used. Results obtained with different assay methods or kits cannot be used interchangeably. Results cannot be interpreted as absolute evidence of the presence or absence of malignant disease. us Desmond Hendrickson MD LAB BLOOD ORDERABLES Final Resul t [facility] [address] [place] [address], documented in this encounter Visit Diagnoses Diagnosis Benign prostatic hyperplasia with lower urinary tract symptoms documented in this encounter Care Teams Collar Sewer Relationship Specialty Start Date End Date Fabrice Henning DO [address] [facility] [address] [place], [place] PCP - General Internal Medicine 01/16/25 documented as of this encounter
[2025-01-28 18:36] LABS: MANUAL DIFF FLAG NO
[2025-01-28 19:02] LABS: Basophils Percent Auto 0.7 % (0-2); Eosinophils Percent Auto 0.6 % (0-4); Hematocrit 42.9 % (42.0-52.0); Hemoglobin 14.8 g/dl (14.0-18.0); Imm Gran Abs Auto 0.01 X10*3/uL (0.00-0.03); Imm Gran Pct Auto 0.2 % (0.0-0.4); Lymphocytes Absolute Auto 1.3 X10*3/uL (1.2-4.9); Lymphocytes Percent Auto 24.4 % (20-40); Mean Corpuscular HGB Conc 34.5 g/dl (31.0-36.0); Mean Corpuscular Hemoglobin 29.8 pg (27.0-33.0); Mean Corpuscular Volume 86.3 fL (80.0-98.0); Mean Platelet Volume 10.2 fL (9.4-12.4); Monocytes Absolute Auto 0.4 X10*3/uL (0.1-1.2); Neutrophils Absolute Auto 3.7 x10*3/uL (2.0-8.3); Neutrophils Percent Auto 67.1 % (45-73); Platelet Count 207 X10*3/uL (160-400); Red Blood Count 4.97 X10*6/uL (4.60-5.80); Red Cell Distribution Width 12.5 % (11.0-16.0); White Blood Count 5.4 X10*3/uL (4.8-10.8)
[2025-01-28 19:04] LABS: Alanine Aminotransferase 25 U/L (0-40); Albumin Level 4.5 g/dL (3.5-5.0); Alkaline Phosphatase 45 U/L (39-117); Anion Gap 14 (12-20); Aspartate Amino Transferase 28 U/L (5-37); Bilirubin Total 0.8 mg/dL (0.0-1.0); Blood Urea Nitrogen 18 mg/dL (9-16); Calcium 9.6 mg/dL (8.4-10.2); Carbon Dioxide 25 mmol/L (22-29); Chloride 105 mmol/L (96-108); Cholesterol 207 mg/dL (<200); Estimated Glomerular Filt Rate > 60; Glucose Random 102 mg/dL (60-115); HDL Cholesterol 56 mg/dL (>40); LDL Cholesterol Calculated 126 mg/dL (<100); Sodium 140 mmol/L (135-145); Total Protein 7.3 g/dL (6.5-8.0); Triglycerides 125 mg/dL (<150)
[2025-02-01 17:14] LABS: Testosterone, Total 114 ng/dL (250-1100)
== END 2025-01-28 12:18 | disposition home or self-care (01) ==
LOC: HO.MANLDS 12:17
PROVIDERS: Visit Provider Internal Medicine
DX: Z00.00 Encounter for general adult medical examination without abnormal findings (principal); E78.5 Hyperlipidemia, unspecified; R53.82 Chronic fatigue, unspecified
CPT/HCPCS: 36415; 80053; 80061; 84403; 85025

== ENCOUNTER 2025-02-18 07:53 | Outpatient (REF) | payer OTHER, SELFPAY ==
--- OUTSIDE RECORDS SUMMARY | 2025-02-18 07:55 | XMS_ITS | Encounter Summary ---
Author Organization [facility] Address [address] [place] [address] Care Team Providers Care Wood Coater Name Role Phone Fabrice Henning DO Primary Care Provider [phone] Encounter Details Date Type Department Care Team (Late st Contact Info) Description 01/16/2025 Lab Requisition [facility] - Main Lab [address] [facility] [place] [address] Desmond Hendrickson MD [address] [facility] [address] [place] [address] Benign prostatic hyperplasia with lower [...] LAB CHEMISTRY METHOD 01/16/2025 2:19 PM EDT [facility] Blood Venous blood specimen / Unknown 01/16/2025 9:50 AM EDT 01/16/2025 12:51 PM EDT Narrative [facility] - 01/16/2025 2:19 PM EDT The Siemens Advia Centaur Chemiluminescent Immunoassay is used. Results obtained with different assay methods or kits cannot be used interchangeably. Results cannot be interpreted as absolute evidence of the presence or absence of malignant disease. us Desmond Hendrickson MD LAB BLOOD ORDERABLES Final Resul t [facility] [address] [place] [address], documented in this encounter Visit Diagnoses Diagnosis Benign prostatic hyperplasia with lower urinary tract symptoms documented in this encounter Care Teams Wood Coater Relationship Specialty Start Date End Date Fabrice Henning DO [address] [facility] [address] [place], [place] PCP - General Internal Medicine 01/16/25 documented as of this encounter
--- OUTSIDE RECORDS SUMMARY | 2025-02-18 07:55 | XMS_ITS | Data Portability ---
Author Organization [facility], Telehealth Patient Home Address [address] [place] [address] Assessment Encounter Date Assessment Date Assessment LastModified by Organization Details LastModified Time 03/29/2023 03/29/2023 [id number] [place] [id number] (QA TESTER) : ISABEL LOW MUST MEET 2 OF [...] COVERED Not available 03/29/2023 16:05:24 05/03/2023 05/03/2023 [id number] [place] [address] (QA TESTER) : [facility] LOW MUST MEET 2 OF 3 ELEMENTS: [...] COVERED Not available 05/03/2023 17:02:25 10/02/2024 10/02/2024 [id number] [place] [id number] (QA TESTER) MDM MODERATE MUST MEET 2 OUT OF [...] Last Modified Time Details Appointments ANNUAL EXAM 2025 12:00P M DR ARRINGTON Not available Not available Not available Lab lipid panel, blood 2024 025 [facility], [address] [place] [address], [id number], 01/29/2025 12:21:44 CBC w/ auto diff 2024 025 [facility], [address] [place] [address], [id number], 01/29/2025 12:21:44 CMP, serum or plasma 2024 025 [facility], [address] [place] [address], [id number], 01/29/2025 12:21:44 testoster one, total, serum 2024 025 [facility], [address] [place] [address], [id number], 02/03/2025 11:41:43 urinalysi s complete, reflex culture 2024 025 [facility], [address] [place] [address], [place], [address], 10/03/2024 12:21:01 urinalysi s, dipstick 2024 025 [facility], [address] [facility], [address], [place], [address], 10/02/2024 16:08:15 CMP, serum or plasma 2023 024 [facility], [address] [place] [address], [place], [address], 01/17/2024 11:19:12 PSA, serum or plasma 2023 024 [facility], [address] [place] [address], [id number], 01/17/2024 11:19:13 CBC w/ auto diff 2023 024 [facility], [address] [place] [address], [place], [address], 01/17/2024 11:19:12 lipid panel, blood 2023 024 [facility], [address] [place] [address], [place], [address], 01/17/2024 11:19:12 vitamin D, 25-hydrox y, total, serum 2023 024 [facility], [address] [place] [address], [place], [address], 01/16/2024 13:32:58 vitamin B12 + folate, serum or blood 2022 023 [facility], [address] [place] [address], [id number], 03/29/2023 16:15:32 TSH, serum or plasma 2022 023 [facility], [address] [place] [address], [id number], 03/29/2023 16:15:32 lipid panel, blood 2022 023 [facility], [address] [place] [address], [address], 03/29/2023 16:15:32 CMP, serum or plasma 2022 023 [facility], [address] [place] [address], [id number], 03/29/2023 16:15:32 CBC w/ auto diff 2022 023 [facility], [address] [place] [address], [id number], 03/29/2023 16:15:32 Referral None recorded. Procedures None recorded. Surgeries None recorded. Imaging XR, knee, 3 view 2023 024 [facility], [address] [place] [address], [place], [address], 01/30/2024 08:06:26 Medication Orders meloxicam 15 mg tablet 2024 025 [facility]215, [address] [place], [place], [id number], 01/28/2025 12:19:33 terbinafi ne HCl 250 mg tablet 2024 025 [facility] #68920, [address] [place], [place], [id number], 01/28/2025 12:19:34 sulfameth oxazole 800 mg-trimet hoprim 160 mg tablet 2024 025 [facility]25675, [address] [place], [place], [id number], 10/02/2024 15:35:50 trazodone 100 mg tablet [address] [facility]15127, [address] [place], [place], [id number], 01/16/2024 13:32:58 buspirone 10 mg tablet [address] [facility]08914, [address] [place] [address], [place], [id number], 10/02/2024 15:39:15 clonazepa m 0.5 mg tablet 2022 023 [facility] #83095, [address] [place], [place], [id number], 03/29/2023 16:08:11 duloxetin e 30 mg capsule,d elayed release 2022 024 [facility] #83249, [address] [place], [place], [id number], 01/16/2024 09:09:14 Patient TargetsNo targets recorded. Patient Instructions Encounter Date Encounter Id Patient Instructions Last Modified By Organization Details Last Modified Time 03/29/2023 [id number] high cholesterol : care instructions Not available 03/29/2023 16:08:03 10/02/2024 [id number] painful urinatio n (dysuria): care instructions Not available 10/02/2024 15:35:39 epididymitis and orchitis: care instructions Not available 10/02/2024 15:35:38 Reason for Referral None Reported. Results Created Date Observation Date Name Description Value Unit Range Abnormal Flag Note LastModifiedBy Organization Detail LastModifiedTime 10/02/1910/02/2024 urina lysis , dipst ick Leukocytes Negati ve Not Available [facility] [address] [place] [address] [address], [place], [address], 10/02/2024 15:14:27 10/02/19 25 10/02/2024 urina lysis , dipst ick Nitrite negati ve Not Available [address], [place], [address], 10/02/2024 15:14:27 10/02/19 25 10/02/2024 urina lysis , dipst ick Urobilinogen .2 Not Available [facility] [address] [facility] [address], [place], [address], 10/02/2024 15:14:27 10/02/19 25 10/02/2024 urina lysis , dipst ick Protein Trace Not Available [address], [place], [address], 10/02/2024 15:14:27 10/02/19 25 10/02/2024 urina lysis , dipst ick pH 6.0 Not Available [address], [place], [address], 10/02/2024 15:14:27 10/02/19 25 10/02/2024 urina lysis , dipst ick Blood Negati ve Not Available [address], [place], [address], 10/02/2024 15:14:27 10/02/19 25 10/02/2024 urina lysis , dipst ick Specific [place] 1.020 Not Available [address], [place], [address], 10/02/2024 15:14:27 10/02/19 25 10/02/2024 urina lysis , dipst ick Ketone Trace Not Available [address], [place], [address], 10/02/2024 15:14:27 10/02/19 25 10/02/2024 urina lysis , dipst ick Bilirubin Small Not Available [facility] [address] [facility] [address], [place], [address], 10/02/2024 15:14:27 10/02/19 25 10/02/2024 urina lysis , dipst ick Glucose Negati ve Not Available [facility] [address] [facility] [address], [place], [address], 10/02/2024 15:14:27 10/02/19 25 10/02/2024 urina lysis , dipst ick Appearance Clear Not Available [facility] [address] [facility] [address], [place], [address], 10/02/2024 15:14:27 10/02/19 25 10/02/2024 urina lysis , dipst ick Color Yellow Not Available [facility] [address] [facility] [address], [place], [address], 10/02/2024 15:14:27 11/15/19 25 11/13/2024 , [facility] No observ ation record ed. [email or web address] [place] [address] (Medical Records) [address] [place], [address], 11/17/2024 19:24:48 11/15/19 25 11/13/2024 , testi mari No observ ation record ed. [email or web address] (Medical Records) [address] [place], [address], 11/17/2024 19:24:30 Result Notes None recorded. Problems Name Problem SNOMED Code Status Onset Date Resolution Date Notes Provider Name and Address Organization Details Recorded Time Hyperlip idemia 39321269 Active 2020 Fabrice Arrington DO [address] [facility], [place], [address], [facility] 1 16:36:45 Insomnia 833383316 Active 2021 Fabrice Morales Juvencio, DO [address] [place] [address], [address], [facility] 2 16:36:55 Anxiety 98765392 Active 2021 Fabrice Morales Michimaritza, DO [address] [place] [address], [address], [facility] 2 16:42:45 Neuralgi a 56535856 Active 2017 [facility] [place], operated by [facility] 8 10:26:40 Pain of left knee joint 50387169893 4107 Active 2023 Fabrice Arrington DO [address] [place] [address], [address], [facility] [place] 4 09:17:52 Stress and adjustme nt reaction 675865809 Active 2023 Fabrice Arrington DO [address] [place] [address], [address], [facility] 4 09:20:51 Dysuria- frequenc y syndrome 4397075 Active 2024 Fabrice Arrington DO [address] [place] [address], [address], [facility] 5 09:59:48 Dysuria 04574619 Active 2024 Fabrice Arrington DO [address] [place] [address], [address], [facility] 5 10:25:02 Epididym itis 96593773 Active 2024 Fabrice Arrington DO [address] [place] [address], [address], [facility] 5 15:35:09 Pain of left testicle 13466543480 212548 Active 2024 Fabrice Arrington DO [address] [place] [address], [address], [facility] 5 14:54:17 Urgent desire to urinate 44219963 Active 2024 Fabrice TrudyTed Arrington, DO [address] [place] [address], [address], [facility] 23:17:19 Onychomy cosis of toenails 416547999 Active 2024 Fabrice Arrington, DO [address] [place] [address], [address], [facility] 12:14:20 Fatigue 03913287 Active 2024 Fabrice TrudyTed Arrington DO [address] [place] [address], [address], [facility] 12:15:43 Pain of multiple joints 29880066 Active 2024 Fabrice Arrington DO [address] [place] [address], [address], [facility] 12:18:51 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 Medical Equipment None [...] completed Not Available Not Available Not Available meloxicam 15 mg tablet TAKE 1 TABLET BY MOUTH DAILY active Not Available Not Available No t Available clonazepam 0.5 mg tablet TAKE 1 [...] Not Available Not Available No t Available terbinafine HCl 250 mg tablet TAKE 1 TABLET BY MOUTH EVERY DAY active Not Available Not Available No t Available lorazepam 0.5 mg tablet TAKE 1 TABLET BY MOUTH THREE TIMES DAILY FOR 7 DAYS NEEDED 03/23 completed Not Available Not Available Not Available trazodone 100 mg tablet TAKE 1 [...] completed Not Available Not Available Not Available alfuzosin ER 10 mg tablet,exte nded release 24 hr TAKE 1 TABLET BY MOUTH EVERY DAY active Not Available Not Available No t Available tadalafil 5 mg tablet TAKE 1 TABLET BY MOUTH ONCE DAILY FOR SEXUAL ACTIVITY. active Not Available Not Available No t Available duloxetine 30 mg capsule,del ayed release [...] in Arterial blood by Pulse oximetry Systolic And Diastolic Provider Name and Address Organization Details Last Updated DateTime 5 180.34 cm 25.9 kg/m2 72323.7 4 g 76 /min 98 % 98 % 126/78 mm[Hg] Stone Paris [facility] 5 15:12:06 Date Recorded Body height Body mass index (BMI) Body weight Heart rate Oxygen saturation Oxygen saturation in Arterial blood by Pulse oximetry Systolic And Diastolic Provider Name and Address Organization Details Last Updated DateTime 4 180.34 cm 26.5 kg/m2 66336.9 1 g 90 /min 97 % 97 % 132/78 mm[Hg] Sheela Drew [facility] 4 08:59:00 Date Recorded Body height Body mass index (BMI) Body weight Heart rate Oxygen saturation Oxygen saturation in Arterial blood by Pulse oximetry Systolic And Diastolic Provider Name and Address Organization Details Last Updated DateTime 5 180.34 cm 25.8 kg/m2 83062.5 9 g 85 /min 98 % 98 % 150/78 mm[Hg] Allie Otero [facility] 5 11:58:16 Date Recorded Body height Body mass index (BMI) Body weight Heart rate Oxygen saturation Oxygen saturation in Arterial blood by Pulse oximetry Systolic And Diastolic Provider Name and Address Organization Details Last Updated DateTime 3 180.34 cm 25.9 kg/m2 26317.1 8 g 81 /min 98 % 98 % 155/88 mm[Hg] Allie Otero [facility] 3 15:27:00 Date Recorded Body height Body mass index (BMI) Body weight Heart rate Oxygen saturation Oxygen saturation in Arterial blood by Pulse oximetry Systolic And Diastolic Provider Name and Address Organization Details Last Updated DateTime 3 180.34 cm 25.4 kg/m2 41837.5 3 g 110 /min 99 % 99 % 126/72 mm[Hg] Farbice Arrington, DO [address] [place], [address], [place] - [facility] 3 16:37:17 Social History Question Answer Notes LastModified by Organizat ion Details LastModified Time Tobacco Smoking Status Current Every Day Smoker e-cigg Not Available [facility] 06/09/2020 03:36:24 What Was The Date Of Your Most Recent Tobacco Screening? 01/28/2025 [email or web address] Information not available 01/28/2025 Sex: Unknown Functional Status Question Answer Note LastModified by Organization D etails LastModified Time Do you or have you ever used any other forms of tobacco or nicotine? No [email or web address] Information not available 03/29/2023 Mental Status None recorded. Family History Nothing Reported. Medical History No medical history recorded. Immunizations Vaccine Type Date Status Note Provider Nam e and Address Organization Details Recorded Time Tdap 04/29/2019 completed Not Available [facility] 05/28/2021 15:39:46 Past Encounters Encounter ID Performer Location Encounter Start Date Encounter Closed Date Diagnosis/Indication Diagnosis SNOMED-CT Code Diagnosis ICD10 Code Diagnosis Note [id number] Fabrice Arrington [facility] [address] [place] [address], [place] [address] 01/09/2018 11:43:45 01/09/2018 12:21:19 Adult health examination 776878353 Z00.00 will add sertraline again and go with a higher dose taken in the evening Active or passive immunization 068250861 Z23 [id number] Fabrice Arrington [facility] [address] [place] [address], [place] [address] 02/21/2018 11:34:08 02/21/2018 13:49:55 Hyperglycemia 80724568 R73.9 will re chk lab in 6 weeks early oct chk A1c and glucose [id number] Fabrice Arrington [facility] [address] [place] [address], [place] [address] 04/25/2018 13:34:01 04/25/2018 14:17:27 Hyperglycemia 56145082 R73.9 will re chk lab in 6 months early november chk A1c and glucose [id number] Fabrice Arrington [facility] [address] [place] [address],[place] [address] 12/01/2020 09:44:23 12/01/2020 11:32:36 Active or passive immunization 727819788 Z23 will need shingles vacc in 10 yrs he will also need colonsocop y soon Adult heal th examination 358753619 Z00.00 doing well no major issues Screening for malignant neoplasm of colon 357082656 Z12.11 had one at 40 yrs age will order Anxiety 68750805 F41.9 Tinea cruris 432106722 B 35.6 [id number] Fabrice Arrington [facility] [address] [facility] [address] [place] [address] 12/06/2021 15:36:33 12/07/2021 08:11:41 Hyperlipidemia 42300286 E78.5 will need lab and have him get fbw Insomnia 348338946 G47.0 0 we will try the lower Anxiety 05764888 F41.9 was on citalopram now having similar sympt we will try the trazodone first and [place] [id number] Fabrice Arrington [facility] [address] [facility] [address],[place] [facility] [place] [address] 03/04/2022 09:00:55 03/04/2022 10:15:47 Active or passive immunization 327582902 Z23 will need shingles vacc in 10 yrs he will also need colonsocop y soon Adult heal th examination 030390210 Z00.00 doing well no major issueslong discuss re lab etc we will have him cont to eat well stay active and rechk a cholestero l in 1 year after this we will then consider ordering a ct heart calcium score [id number] Fabrice Arrington [facility] [address] [facility] [address],[place] [address] 03/29/2023 15:05:01 03/29/2023 16:19:13 Hyperlipidemia 04213821 E78.5 will need lab and have him get fbw Anxiety 79935027 F41.9 we will have him try duloxetine and willsee in 4 weeks also we will refill clonazepam instead of lorazepam [id number] Fabrice Arrington [facility] [address] [facility], [place] [address] 05/03/2023 16:01:50 05/05/2023 08:07:02 Anxiety 48743143 F41.9 did not tolerate the duloxetine has had some diarrhea and on edge but other days was betterwill try buspirone Hyperlipidemia 87935975 E78.5 will need lab and have him get fbw [id number] Fabrice Arrington [facility] [address] [facility] [place] [place] [address] 01/16/2024 08:51:16 01/16/2024 11:16:39 Active or passive immunization 480548831 Z23 will need shingles vacc in 10 yrs he will also need colonsocop y soon Adult heal th examination 285448155 Z00.00 doing well no major issueslong discuss re lab etc we will have him cont to eat well stay active and rechk a cholestero l in 1 year after this we will then consider ordering a ct heart calcium score Depression screening 171 740198 Z13.31 SCREENING NEGATIVE Stress and adjustment reaction 412670479 F43.9 stop buspar Insomnia 476153230 G47.0 0 we will try increasing the traz to help with the stresshe will stop the buspar Pain of le ft knee joint 5246076119 21287 M25.562 obvious damage to palpation and pt relates pain will start with xray [id number] Fabrice BordenmaritzaDO [facility] [address] [facility] [place] [address] 10/02/2024 15:00:35 10/02/2024 15:44:15 Dysuria 74427104 R30.0 Epididymitis 88921739 N4 5.1 Stress and adjustment reaction 428009167 F43.9 stop buspar [id number] Fabrice Bordenmaritza [facility] [address] [facility], [place] [address] 01/28/2025 11:49:08 01/28/2025 13:25:04 Active or passive immunization 582449614 Z23 will need shingles vacc in 10 yrs he will also need colonsocop y soon Hyperlipidemia 83763048 E78.5 will need lab and have him get fbw Preventive procedure 169 668132 Z00.00 doing well no major issueslong discuss re lab etc we will have him cont to eat well stay active and rechk a cholestero l in 1 year after this we will then consider ordering a ct heart calcium score Onychomyco sis of toenails 730183130 B35.1 Fatigue 22538263 R53.82 Pain of mu ltiple joints 04928035 M25.50 Health Concerns Section Related Observation LastModified by Organization Detai ls LastModified Time None Recorded Concern Status LastModified by Organization Details LastModified Time None Recorded Advance Directives Directive None Recorded Payers Insurance Date Sequence Insurance Name Policy Number Policy Epperson Covered Member ID Epperson Member ID Guarantor Name 01/28/[address] [place] [address] [id number] Sedrick Osorio [id number] Sedrick Osorio Notes Date Note Type Note Provider Name and Address Organization Details Recorded Time 03/29/20 23 text/htm l here for rechk and relates that he has been still anxiouslong detailed discussion re anxiety and stress and feeling down and treatment opitons Fabrice Arrington DO [address] [place], [address], [facility] 03/29/2023 16:12:39 05/03/20 23 text/htm l here for rechk a nd states tried to take the diloxetine and states that first week was not too good and had some diarrheastates has had couple days not feeling well and stayed in bedthis week had a panic attack Fabrice Arrington DO [address] [place], [address], [facility] 05/03/2023 17:12:22 01/16/20 24 text/htm l Annual [...] hearing Vision:no vision problems Fabrice Arrington DO [address] [place] [address], [address], [facility] 01/16/2024 09:21:21 10/02/19 25 text/htm l having a burning pain down to left testes and having pins and needles to his penis and also had some pain deeper inside Fabrice Arrington DO [address] [place] [address], [address], [facility] 10/02/2024 15:46:33 01/29/20 25 text/htm l Annual WellnessReported bypatient.Diet and Nutrition:healthy [...] disorders Hearing:no loss of hearing Vision:no vision problemsCare Management - HyperlipidemiaReported bypatient.Control:usually well controlled; improving; at goal Complications:no coronary artery disease; no heart attack; no cardiovascular disease; no pancreatitis; no stroke here for rechk of his wellness visit Fabrice Arrington DO [address] [place] [address], [address], [facility] 01/28/2025 12:19:48
[2025-02-23 04:34] LABS: Testosterone, Free 61.9 pg/mL (35.0-155.0)
== END 2025-02-18 07:54 | disposition home or self-care (01) ==
LOC: HO.MANLDS 07:53
PROVIDERS: Visit Provider Internal Medicine
DX: E34.9 Endocrine disorder, unspecified (principal)
CPT/HCPCS: 36415; 84270; 84402; 84403

== ENCOUNTER 2025-03-19 08:24 | Outpatient (REF) | payer OTHER, SELFPAY ==
--- OUTSIDE RECORDS SUMMARY | 2025-03-19 08:33 | XMS_ITS | Clinical Summary ---
Author Organization [facility] Address [address] [place] [address] Phone Care Team Providers Care Clinical Program Director Name Role Phone Carl Arrington DO Primary Care Provider [phone] Allergies No known active allergies Medications omeprazole (PRILOSEC) 20 MG capsule omeprazole 20 mg capsule,delayed release TAKE ONE CAPSULE BY MOUTH EVERY DAY Active ibuprofen (ADVIL,MOTRIN) 200 MG tablet Take 600 mg by mouth every 6 (six) hours as needed for pain (specific location in comments). Active LORazepam (ATIVAN) 0.5 MG tablet Take 0.5 mg by mouth every 6 (six) hours as needed for anxiety. Active Active Problems No known active problems Encounters Date Type Department Care Team Description 02/26/2025 9:40 AM EDT Office Visit [facility] [address] [address] Araceli Vann NP Bilateral impacted cerumen (Primary Dx) from Last 3 Months Social History Tobacco Use Types Packs/Day Years Used Date Smoking Tobacco: Former Cigarettes Q uit: 2004 Smokeless Tobacco: Never Comments:e- cigarrettes at p resent Alcohol Use Standard Drinks/Week Comments Yes 12 (1 standard drink = 0.6 oz pu re alcohol) Education Answer Date Recorded Are you interested in more education? Not on michelle e 12/02/2022 Are you concerned about learning? Not on file 12/02/2022 No 12/02/2022 No 12/02/2022 Digital Access Answer Date Recorded No 12/31/2022 No 12/31/2022 No 12/31/2022 Reliable internet access at home? Not on file 12/31/2022 Device with a working camera? Not on file Sex and Gender Information Value Date Recorded Sex Assigned at Not on file Legal Sex Male 9:36 PM EDT Gender Identity Not on file Sexual Orientation Not on file Last Filed Vital Signs Vital Sign Reading Time Taken Comments Blood Pressure 169/80 02/26/2025 10:20 AM EDT Pulse 88 02/26/2025 10:20 AM EDT Temperature 36.2 C (97.1 F) 02/26/2025 10:20 AM EDT Respiratory Rate 18 02/26/2025 10:20 AM EDT Oxygen Saturation 99% 02/26/2025 10:20 AM EDT Inhaled Oxygen Concentration - - Weight 81.6 kg (180 lb) 05/26/2021 8:06 AM EDT Height 182.9 cm (6') 05/26/2021 8:06 AM EDT Body Mass Index 24.41 05/26/2021 8:06 AM EDT Plan of Treatment Health Maintenance Due Date Last Done Comments LIPID PANEL 1970 DEPRESSION SCREENING 1981 SMOKING Hx and SMOKELESS TOBACCO SCREENING 1982 HEPATITIS C SCREENING 1987 HIV ONE-TIME SCREENING (18-6 5 YEARS) 1987 COLOGUARD 2014 FIT TEST 2014 FOBT 2014 SIGMOIDOSCOPY 2014 VIRTUAL COLONOSCOPY 2014 PNEUMOCOCCAL VACCINES (50+ years) (1 of 1 - PCV) 2019 ZOSTER VACCINES (1 of 2) 2019 COVID-19 VACCINE (4 - 2023-2 5 season) 2024 07/24/2021, 01/01/2021, 12/11/2020 Adult Td,Tdap Booster 04/29/2029 04/29/2019 COLONOSCOPY 05/28/2031 05/28/2021 COLORECTAL CANCER SCREENING 05/28/2031 HEPATITIS A VACCINES Aged Out No long er eligible based on patient's age to complete this topic HIB VACCINES Aged Out No longer eligi ble based on patient's age to complete this topic MENINGOCOCCAL VACCINES (ACWY) Aged Out No longer eligible based on patient's age to complete this topic MENINGOCOCCAL VACCINES (B) Aged Out N o longer eligible based on patient's age to complete this topic Medical Devices Not on file Procedures Procedure Name Priority Date/Time Associated Diagnosis Comments EAR CERUMEN REMOVAL Routine 02/26/2025 1 1:03 AM EDT Bilateral impacted cerumen ENDOSCOPY, COLON 05/28/2021 8:36 AM EDT from Last 3 Months or Most Recently Relevant to Health Maintenance Results * EAR CERUMEN REMOVAL (02/26/2025 11:03 AM EDT) Other Narrative Araceli Vann NP - 02/26/2025 11:03 AM EDT Araceli Vann NP 02/26/2025 11:04 AM Cerumen Removal Date/Time: 02/26/2025 11:03 AM Visualization: Otoscopy Cerumen in: Bilateral ears Removed with: IrrigationComments: TMs are normal limits post irrigation Ona Protocol: Verbal consent obtained: Yes Written consent obtained: No Time out: Immediately prior to the procedure, a time out was called to verify that there is a signed consent form and that the correct patient, planned procedure, site and side are consistent with documentation and that necessary equipment and/or blood products are available prior to the start of the case. Araceli Vann NP PROCEDURE/MINOR SURGICAL O RDERABLES Final Result * ENDOSCOPY, COLON (05/28/2021 8:36 AM EDT) Narrative Transcriptions Gavin Pemberton MD - 05/28/2021 8:36 AM EDT Patient Name: Sedrick Moreno MD:: GAVIN PEMBERTON MD, Procedure Date: 05/28/2021 8:36 AM Date of : 1970 Age: 51 Admit Type: Outpatient Gender: Male Room: [facility] 04 Referring MD: CARL ARRINTGON DO Exam Type: Colonoscopy Indications: Screening for colorectal malignant neoplasm Medications: Monitored Anesthesia Care Procedure: Informed consent was obtained from the patient after discussion of the indications, limitations, alternatives, benefits, and risks of the procedure. Risks specifically discussed include but are not limited to medication reactions, missed lesions, bleeding, perforation, or the need for emergentsurgery. Throughout the procedure, the patient's bloodpressure, pulse, end-tidal CO2, and oxygen saturations were monitored continuously. The Olympus pediatric variable colonoscopePCF-[id number] #4 was introduced through the anus and advanced tothe cecum, identified by appendiceal orifice andileocecal valve. The colonoscopy was performed without difficulty. The patient tolerated the procedurewell. The quality of the bowel preparation was excellent.The quality of the bowel preparation was evaluated using the BBPS ([place] Bowel Preparation Scale) withscores of: Right Colon = 3, Transverse Colon = 3 and Left Colon = 3 (entire mucosa seen well with no residual staining, small fragments of stool or opaqueliquid). The total BBPS score equals 9. Complications: No immediate complications. Estimated blood loss: Minimal. Findings: Hemorrhoids were found on perianal exam. A 2 mm polyp was found in the rectum. The polyp was sessile. The polyp was removed with a cold biopsy forceps. Resection and retrieval were complete. Scattered small-mouthed diverticula were found inthe sigmoid colon. Internal hemorrhoids were found during retroflexion. The hemorrhoids were mild. The exam was otherwise normal throughout theexamined colon. Impression: - Hemorrhoids found on perianal exam. - One 2 mm polyp in the rectum, removed with a cold biopsy forceps. Resected and retrieved. - Internal hemorrhoids. - Mild diverticulosis in the sigmoid colon. Recommendation: - Discharge patient to home. - Await pathology results. GAVIN PEMBERTON MD, 05/28/2021 9:04:20 AM This report has been signed electronically. Number of Addenda: 0 Note Initiated On: 05/28/2021 8:36 AM Procedure Code(s): --- Professional --- 20728, Colonoscopy, flexible; with biopsy, single or multiple --- Technical --- 12246, Colonoscopy, flexible; with biopsy, single or multiple Diagnosis Code(s): --- Professional --- Z12.11, Encounter for screening for malignantneoplasm of colon K64.8, Other hemorrhoids K62.1, Rectal polyp K57.30, Diverticulosis of large intestine without perforation or abscess without bleeding --- Technical --- Z12.11, Encounter for screening for malignantneoplasm of colon K64.8, Other hemorrhoids K62.1, Rectal polyp K57.30, Diverticulosis of large intestine without perforation or abscess without bleeding CPT copyright 2018 [employer]. All rights reserved. The codes documented in this report are preliminary and upon manager front office reviewmay be revised to meet current compliance requirements. Procedure Date: 05/28/2021 8:36:[address] [place] [address] us Carl Arrington DO GI PROCEDURE ORDERABLES Final Re sult from Last 3 Months or Most Recently Relevant to Health Maintenance [place] [address] [place] [address] HMO O O O [place] [address] [place] [address] HMO Care Teams Clinical Program Director Relationship Specialty Start Date End Date Carl Arrington DO [email or web address] PCP - General Internal Medicine 05/28/21 Additional Source Comments The information contained in this document represents components of the legal health record. It is not the complete legal health record.[facility]
--- OUTSIDE RECORDS SUMMARY | 2025-03-19 08:33 | XMS_ITS | Encounter Summary ---
Author Organization [facility] Address [address] [place] [address] Care Team Providers Care Miller Head Name Role Phone Fabrice Henning DO Primary Care Provider [phone] Encounter Details Date Type Department Care Team (Late st Contact Info) Description 01/16/[address] [facility] - Main Lab [address] [facility] [place] [address] Desmond Hendrickson MD [address] [facility] [address] [place] [address] Benign prostatic hyperplasia with [...] LAB CHEMISTRY METHOD 01/16/2025 2:19 PM EDT [facility] Blood Venous blood specimen / Unknown 01/16/2025 9:50 AM EDT 01/16/2025 12:51 PM EDT Narrative [facility] - 01/16/2025 2:19 PM EDT The Siemens Advia Centaur Chemiluminescent Immunoassay is used. Results obtained with different assay methods or kits cannot be used interchangeably. Results cannot be interpreted as absolute evidence of the presence or absence of malignant disease. us Desmond Hendrickson MD LAB BLOOD ORDERABLES Final Resul t [facility] ([facility]) [facility] [address] [place] [address], documented in this encounter Visit Diagnoses Diagnosis Benign prostatic hyperplasia with lower urinary tract symptoms documented in this encounter Care Teams Miller Head Relationship Specialty Start Date End Date Fabrice Henning DO [address] [facility] [address] [place], [place] PCP - General Internal Medicine 01/16/25 documented as of this encounter
[2025-03-25 13:28] LABS: Testosterone, Free 73.7 pg/mL (35.0-155.0)
== END 2025-03-19 08:25 | disposition home or self-care (01) ==
LOC: HO.MANLDS 08:24
PROVIDERS: Visit Provider Internal Medicine
DX: E34.9 Endocrine disorder, unspecified (principal)
CPT/HCPCS: 36415; 84270; 84402; 84403